=== PATIENT | female | born 1950 | race African-American/Black ===

== ENCOUNTER 2016-10-03 06:59 | Emergency (ER) | payer MEDICARE ==
[~2016-10-03] VITALS: Ht 170.2 cm; Wt 89.4 kg
[~2016-10-03 06:59] MED LIST: ALBUTEROL2 PUFFS/17 IN; ALLOPURINOL100 MG PO; AMIODARONE 200200 MG PO; AMLODIPINE BES10 MG PO; AMLODIPINE10 MG PO; ATENOLOL50 MG PO; ATORVASTATIN CA20 M1 PO; AZITHROMYCIN250 MG PO; BENTYL10 MG/5 ML PO; BENZONATATE100 MG PO; BISOPROLOL 5MG T5 MG PO; BYSTOLIC5 MG PO; CARDIZEM120 MG PO; CARVEDILOL 25MG25 MG PO; CIPRO 500MG TA500 MG PO; CLONIDINE0.3 MG PO; COLCRYS0.6 MG PO; COUMADIN 5MG TAB5 MG PO; COUMADIN10 MG PO; COUMADIN5 MG PO; DIGOXIN0.125 MG PO; FIORICET1 CAP PO; FUROSEMIDE40 MG PO; HUMALOG100 U/ML SC; HYDRALAZINE HCL25 M1 PO; HYDRALAZINE HYD50 MG PO; HYDROCHLOROTHIA25 M1 PO; K-DUR 1010 MEQ PO; K-DUR20 MEQ PO; LANTUS100 U/ML SC; LISINOPRIL40 MG PO; MAG-OX 400MG T400 MG PO; METFORMIN500 MG PO; PACERONE200 MG PO; PHENERGAN 25MG.25 M1 PO; PREDNISONE; PREDNISONE 20MG20 MG PO; PREVACID15 MG PO; SIMVASTATIN20 MG PO; SIMVASTATIN40 MG PO; TESSALON PERLE200 MG PO; WARFARIN SODIUM1 MG PO; WARFARIN SODIUM5 MG PO; ZANTAC 150150 MG PO; ZANTAC 300300 MG PO; ZITHROMAX Z-PA250 M1 PO
--- NOTE | 2016-10-03 07:13 | Emergency Room Report ---
History of Present Illness Time Seen by MD Child Presenting Problem in Triage Pt arrived:Walked Presenting Problem:PT STATES HER BP HAS BEEN ELEVATED THROUGHOUT THE NIGHT AT HOME, 194/134, SWEATING, LEGS FEEL FUNNY. 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 N Clinical Suspician of Infection? N Mental Status: 1 - Regular (Normal Baseline) Sepsis Risk:Possible Sepsis Risk Have you (or family members/close friends) recently traveled outside the [place]? N If Yes, where/when: Have you had exposure to infectious disease within the past month? TB? Other? Specify: Source patient, RN notes reviewed, family, old records Exam Limitations no limitations Comment pt with elevated bp yesterday and this am felt weak and sweaty but no syncope or chest pain - pt reports bp elevated this am Cardiac Chest Pain Chest pain indicative of cardiac No Timing/Duration this morning Severity moderate ALLERGIES Coded Allergies: No Known Allergies (04/14/16) Home Medications Active Scripts BISOPROLOL FUMARATE (Bisoprolol 5MG) 5 MG PO DAILY #30 TAB Ref 11 Prov: 12/20/15 Reported Medications Warfarin Sodium (Coumadin) 5 MG PO DAILY WARFARIN SOD (Warfarin 1MG) 1 MG PO DAILY Hydralazine Hcl (Hydralazine Hydrochloride) 50 MG PO TID CLONIDINE HCL (Clonidine 0.3MG Tablet) 0.3 MG PO TID Insulin Lispro, Recombinant (Humalog 100 UNITS/ML 10ML) 8 UNITS SC AC Insulin Glargine (Lantus) 15 UNITS SC QHS Potassium Chloride (K-Dur) 20 MEQ PO BID Atorvastatin Calcium 20 MG PO QHS Carvedilol (Carvedilol 25MG) 25 MG PO BID Furosemide (Furosemide 40MG) 40 MG PO DAILY Amlodipine Besylate (Amlodipine) 10 MG PO DAILY LISINOPRIL (Lisinopril) 10 MG PO DAILY (Jimy MALHOTRA,Pretty Finch) History Medical History General CAD? No Angina: No NE: No Hypertension? Yes Hyperlipidemia? Yes CHF? No DVT? No PE? No COPD? No Asthma? No Anemia? No GERD? Yes Gastric ulcers? No GI Bleed? No Hernia? Yes Thyroid Problems? No Hypothyroidism? No CVA? No Seizures? No Diabetes? Yes Insulin Dependent: Yes Insulin Pump: No Home FSBS? Yes Renal Insuffiency? No End Stage Renal Disease? No UTI? No Stones? No BPH? No GB Disease: Yes Nephritic Syndrome? No Asplenia? No Hepatitis? No Sickle Cell Disease? No Arthritis? No Migraines? No Cataracts? No Glaucoma? No MRSA? No HIV? No TB? No Anxiety? No Depression? No Cancer? No More? Yes Additional hx: see problem list Immunization Hx DT/Tetanus > 10 Years Ago Flu Refused Pneumonia Received In Past Surgical Hx Previous Surgery?Y GALLBLADDER TUBAL CYST REMOVED (BACK) CARDIAC ABLATION Family History Family Hx Diabetes Yes CAD Yes Hypertension Yes Hyperlipidemia Yes Cancer No TB No Social History Smoking Hx Smoker: Never Smoker Tobacco: No Alcohol Alcohol: No Drugs none (Pretty Ahn MD) Review of Systems All Other Systems Reviewed and Negative Constitutional denies fever Eyes denies drainage ENT denies: ear pain, epistaxis, throat pain. Respiratory denies cough, shortness of breath, denies wheezing Cardiovascular chest pain, palpitations, denies syncope Gastrointestinal denies abdominal pain, nausea, denies vomiting Genitourinary denies: dysuria, frequency, hesitancy. Musculoskeletal denies back pain, denies joint pain, denies neck pain Skin denies rash Psychiatric/Neurological denies headache, denies seizure (Pretty Ahn MD) Physical Exam Vital Signs Vital Signs Date Time Temp Pulse Resp B/P Pulse O2 O2 Flow FiO2 Ox Delivery Rate 10/03 1307 98.6 99 20 187/126 98 05/ 1117 99 20 179/118 98 05/ 1028 99 20 170/119 98 05/ 0856 98.6 99 20 195/114 98 05/ 0816 99 20 152/107 98 05/ 0752 97 159/109 / 0752 100 152/120 / 0751 99 158/112 05/ 0746 99 20 158/112 98 / 0702 98.6 100 20 94/56 98 - WBC >12,000 or <4,000 or 10% bands? 2 or more SIRS Criteria Met? B/P:159/109 MAP:68 Creatinine >2.0? UA output<0.5ml/kg/hr for 2 hrs? Platelet count >100,000? Lactate >2.0mmol/1? INR >1.2 or PTT > than 60 sec? Evidence of Organ Dysfunction? Provider documented clinical suspician of infection? N Sepsis Criteria Count: 2 Sepsis Risk: General Appearance no apparent distress Eye Exam - bilateral eye PERRL, bilateral eye EOMI Ear, Nose, Throat normal ENT inspection Neck non-tender Respiratory Status No: respiratory distress. Lung Sounds bilateral: lungs clear. 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 No Results/Orders Laboratory Tests 10/03/16 1005: Troponin I < 0.02, D-Dimer 1280 *H 10/03/16 0948: Creatine Kinase Cancelled, CK-MB (CK-2) Rel Index Cancelled, CK and CKMB Interp Cancelled, Troponin I Cancelled 10/03/16 0755: Sodium 139, Potassium 3.4 L, Chloride 102, Carbon Dioxide 30, BUN 15, Creatinine 1.2 H, Estimated Creat Clear 67, Estimated GFR (MDRD) 45 L, Glucose 128 H, Calcium 8.7, Total Bilirubin 1.0, AST 36, ALT 29, Alkaline Phosphatase 372 H, Creatine Kinase 29, CK-MB (CK-2) Rel Index 1.7, CK and CKMB Interp < 0.5 , Troponin I < 0.02, Total Protein 8.3 H, Albumin 2.9 L, Globulin 5.4 H, Albumin/Globulin Ratio 0.5 L, PT 16.1 H, INR 1.50 H 10/03/16 0715: B-Natriuretic Peptide 99, WBC 5.3, RBC 5.15, Hgb 12.8, Hct 40.3, MCV 78.3 L, RDW 17.0, Plt Count 338, MPV 5.7 L, Gran % 66.8, Gran # 3.6, Lymphocytes % 19.3 , Monocytes % 10.0 H, Eosinophils % 3.4, Basophils % 0.6, Lymphocytes # 1.0, Monocytes # 0.5, Eosinophils # 0.2, Basophils # 0.0, PUBS MCHC 31.8, MCH 24.9 L Current Medication Orders Sig/Benjie Start time Last Medication Dose Route Stop Time Status Admin Enoxaparin Sodium 100 MG ONCE ONE 10/03 1315 AC SC 10/03 1316 Hydralazine HCl 10 MG ONCE ONE 10/03 1315 AC IV 10/03 1316 Hydralazine HCl 0 .STK-MED ONE 10/03 1310 DC .ROUTE Iopamidol 60 ML ONCE ONE 10/03 1215 DC 10/03 IV 10/03 1216 1216 Sodium Chloride 20 ML ONCE ONE 10/03 1215 DC 10/03 IV 10/03 1216 1216 Sodium Chloride 20 ML ONCE ONE 10/03 1215 DC 10/03 IV 10/03 1216 1216 Sodium Chloride 10 ML ONCE ONE 10/03 1215 DC 05 IV 10/03 1216 1216 Hydralazine HCl 10 MG ONCE ONE 10/03 1130 DC 05/ IV 10/03 1131 1121 Hydralazine HCl 0 .STK-MED ONE 10/03 1118 DC .ROUTE Sodium Chloride 1,000 ML .Q1H1M 10/03 1115 CAN IV 10/03 1215 Sodium Chloride 10 ML PRN PRN 10/03 1115 DC IV 10/04 1107 Clonidine HCl 0.1 MG ONCE ONE 10/03 1000 DC 10/03 PO 10/03 1001 0954 Potassium Chloride 40 MEQ ONCE ONE 10/03 1000 DC 05/ PO 10/03 1001 0954 Potassium Chloride 0 .STK-MED ONE 10/03 0952 DC PO Clonidine HCl 0 .STK-MED ONE 10/03 0951 DC .ROUTE Clonidine HCl 0.1 MG ONCE ONE 10/03 0900 DC 10/03 PO 10/03 0901 0854 Clonidine HCl 0 .STK-MED ONE 10/03 0852 DC .ROUTE Sodium Chloride 10 ML PRN PRN 10/03 0715 AC IV 10/04 0712 Orders Procedure Date/time Status DIET-NOTHING BY MOUTH 10/[address] CHEST W/PE PROTOCOL REQ 10/03 1105 Complete TROPONIN I 05/04 0955 Complete D-DIMER 10/03 0949 Complete ORTHOSTATIC B/P 10/03 0750 Active BRAIN NATRIURETIC PEPTIDE 10/03 0732 Complete ELECTROCARDIOGRAM REQUEST 10/03 712 Active IV SALINE LOCK 10/03 712 Active PROTHROMBIN TIME 10/03 712 Complete COMPLETE METABOLIC PANEL 10/03 712 Complete CBC WITH AUTO DIFF 10/03 712 Complete CARDIAC ENZYMES 10/03 712 Complete 12 LEAD EKG-BESSON (INITIAL) 10/03 UNK Active 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 ST/Twave chgs XRAY/CT/US XRAY/CT/US XRAY chest XR interpretation by reviewed by me Xray Results abnormal (cm) (Jimy MALHOTRA,Pretty Finch) LABS/Meds/Orders Comment 12:55-case discussed with Dr. Ramachandran, covering for Dr. Kent, advised of patient 's abnormal CT scan findings, specifically the mediastinal and RIGHT hilar adenopathy, suspicious for metastatic disease, also the 6x5 mm noncalcified nodule LEFT upper lobe, with irregular margins. Dr. Ramachandran recommended patient to be discharged home and follow-up with his office tomorrow morning for mandatory reevaluation, also to be referred to Dr. Duncan, for a bronchoscopy plus biopsy. Patient advised of the likelihood of lung cancer, however this will require additional workup including a bronchoscopy versus a CT scan guided biopsy, prior to reaching the final diagnosis. Based on the workup today an acute coronary syndrome, a pulmonary embolus, aortic aneurysm or aortic dissection were ruled out. The patient is in stable conditionat this timne, and she will be discharged home. She appears to be still hypertensive, (alos her INR is still low) reason why she needs to see Dr. Ramachandran tomorrow, as well. XRAY/CT/US XRAY/CT/US CT chest CT interpretation by discussed w/radiologist (James) CT Results no evidence of pulmonary embolus. Cardiomegaly with prominent LEFT atrium and LEFT ventricle. Mediastinal and RIGHT hilar adenopathy. Lymphoma or metastatic disease is considered. Suspicious 6x5 millimeter noncalcified nodule LEFT upper lobe laterally with somewhat irregular margins. Follow-up recommended. Dr. Arben Ramirez (Tracie MALHOTRA,Kevin Bronson) Departure Departure Time of Disposition 0847 Disposition Still a Patient Clinical Impression Primary Impression: HTN (hypertension) Qualifiers: Hypertension type: essential hypertension Qualified Code: I10 - Essential (primary) hypertension Secondary Impressions: Hypertensive emergency ED Critical Care Critical Care No (Pretty Ahn MD) Departure Time of Disposition 1307 Condition STABLE Referrals JONATAN MALHOTRA,AUDI Ramachandran MD,Raffy (Family): Tomorrow-Call Office call today and make appointment for MANDATORY follow up tomorrow morning Patient Instructions DI for Atypical Chest Pain, DI for Pulmonary Nodule Additional Instructions Please follow-up with Dr. Ramachandran's office tomorrow morning for mandatory reevaluation, regarding your newly diagnosed lung nodule, your subtherapeutic PT /INR and elevated blood pressure.. Attached you will find Dr. Audi Maciel's contact information, with community to follow-up as well. Discharge Counseling Counseled pt/family regarding diagnosis, test results, medications/RX, home care, follow up needs Comment Please follow-up with Dr. Ramachandran's office tomorrow morning for mandatory reevaluation. Attached you will find Dr. Auid Maciel's contact information, with community to follow-up as well. ED Critical Care Critical Care No (Kevin Hodges MD) at [phone] at [phone]
--- OUTSIDE RECORDS SUMMARY | 2016-10-03 07:27 | External Medical Summary Rpt ---
Author Author , Organization [employer] Address Unknown Phone Unavailable Care Team Providers Care Veterinary Parasitologist Name Role Phone [facility] Unavailable [facility] Unavailable [facility] DEANNE PRADO, Unavailable Unavailable DEANNE Ramachandran MD, Unavailable Unavailable Raffy Ramachandran MD Purpose Continuity of Care Document - 04-12-2010 through 2016 Problems Code Diagnosis DOS Provider Status 35571 DIAB W/O 04-12-2010 [facility] COMP TYPE [facility] II/UNS NOT HOSPITAL P STATED UNCNTRL 4019 UNSPECIFIED 04-12-2010 [facility] ESSENTIAL [facility] P N 26602 ATRIAL 04-12-2010 [facility] 59109 OTHER CHEST 04-12-2010 [facility] PAIN [facility] P [id number] LONG-TERM 04-12-2010 [facility] (CURRENT[facility] USE OF INC ANTICOAGULA NTS [id number] LONG-TERM 04-12-2010 [facility] USE OF [facility] P 401.9 Essential [facility] 427.31 [facility]rial [place] [facility] [place] acquired [facility] 519.11 Bronchospas [facility] [id number] Diabetes [place] mellitus [facility] Allergies, Adverse Reactions, Alerts Type Allergy to substance Adverse Reaction to Substance Substance Reaction Severity INGREDIENT: NO KNOWN Unknown Unknown - NO KNOWN DRUG ALLERGY Medications Na ND Rx Da Fi Fi Am Da Di Ph RX Ph St me C No te ll ll ou ys ag ar # ys at rm s nt no ma ic us Or Da si cy ia de te s n re d HY [address] 40 -2 OC 60 7- Lo OD 36 20 ng ON 56 13 er -A 2 CE Ac TA ti PR ve NO PH EN 5- 32 5 KL 00 03 0 No OR 24 -2 -C 50 7- Lo ON 05 20 ng 80 13 er M2 1 0 Ac TA ti BL ve ET Me 00 03 0 No th 00 -2 yl 90 7- Lo pr 19 20 ng ed 00 13 er ni 9 so Ac lo ti ne ve So d Molina cc in a Me 00 03 0 No th 00 -2 yl 90 6- Lo pr 19 20 ng ed 00 13 er ni 9 so Ac lo ti ne ve So d Molina cc in a TO 00 03 0 No GA 18 -2 OL 61 6- Lo 08 20 ng XL 83 13 er 9 25 Ac ti MG ve TA BL ET HU 00 03 1 No MA 00 -2 LO 27 6- Lo G 51 20 ng 10 01 13 er 0 7 UN Ac IT ti S/ ve ML AL FS 03 0 No -2 BL 6- Lo OO 20 ng D 13 er MOLINA GA Ac R ti ve FU 00 03 0 No RO 40 -2 SE 96 6- Lo PR 10 20 ng DE 20 13 er 4 40 Ac ti MG ve /4 ML AL NO 00 03 1 No RV 06 -2 91 6- Lo C 54 20 ng 10 04 13 er 1 MG Ac ti TA ve BL ET CL 51 03 1 No ON 07 -2 ID 90 6- Lo IN 29 20 ng E 92 13 er HC 0 L Ac 0. ti 1 ve MG TA BL ET HY [address] 07 -2 AL 90 6- Lo AZ 07 20 ng IN 52 13 er E 0 25 Ac ti MG ve TA BL ET Li 00 03 1 No si 17 -2 no 23 6- Lo pr 76 20 ng il 01 13 er 0 20 Ac MG ti ve Ta bl et KL 00 03 1 No OR 24 -2 -C 50 6- Lo ON 05 20 ng 80 13 er M2 1 0 Ac TA ti BL ve ET LE 00 03 1 No VA 59 -2 LB 12 6- Lo UT 92 20 ng ER 02 13 er OL 3 Ac 1. ti 25 ve MG /3 ML SO L FA 51 03 1 No MO 07 -2 TI 90 6- Lo DI 96 20 ng NE 62 13 er 0 20 Ac ti MG ve TA BL ET In 00 03 1 No molina 08 -2 li 82 6- Lo n 22 20 ng Gl 06 13 er ar 0 gi Ac ne ti ve 10 0 Un it s/ Ml GA 51 03 1 No AV 07 -2 90 6- Lo TA 45 20 ng TI 82 13 er N 0 SO Ac DI ti UM ve 20 MG TA B Sa 63 03 2 No li 80 -2 ne 70 5- Lo 10 20 ng Fl 07 13 er us 5 h Ac 10 ti ML ve Sy ri ng e IP 00 03 0 No RA 48 -2 T- 70 5- Lo AL 20 20 ng BU 10 13 er T 1 0. Ac 5- ti 3( ve 2. 5) MG /3 ML Di 55 03 0 No lt 39 -2 ia 00 5- Lo ze 56 20 ng m 60 13 er 25 5 MG Ac /5 ti ML ve Vi al FU 00 03 0 No RO 40 -2 SE 96 5- Lo PR 10 20 ng DE 20 13 er 4 40 Ac ti MG ve /4 ML AL Vital Signs 08-26-2012 16:20 Name Value Interpretat Reference Comment ion Range Body 98.2 [degF] Temperature BP 68 mm[Hg] Diastolic BP Systolic 128 mm[Hg] Heart 96 /min Rate/Pulse Respiratory 22 /min Rate 08-26-2012 12:00 Name Value Interpretat Reference Comment ion Range O2% 95 % 08-25-2012 05:43 Name Value Interpretat Reference Comment ion Range Height 172.72 cm Weight 123.974 kg Measured 08-24-2012 23:08 Name Value Interpretat Reference Comment ion Range Body 99.1 [degF] Temperature BP 119 mm[Hg] Diastolic BP Systolic 158 mm[Hg] Heart 107 /min Rate/Pulse O2% 100 % Respiratory 26 /min Rate Weight 0 [oz_av] Measured Results Labs Lab Lab Date Result Refere Interp Status Commen Order Detail nces retati t Range on Glucose BldC Glucomtr-[facility] (08-26-2012 11:55) Glucose 449 70-110 High complet BldC 013 mg/dl alert ed Glucomt 11:55 r-[facility] PROTIME/INR (08-26-2012 07:15) PROTHRO 41.1 9.8-11. complet MBIN 013 SECONDS 0 ed TIME 07:15 INR Bld 4.01 0.9-1.1 complet 013 UNK ed 07:15 Glucose BldC [facility] (08-26-2012 06:49) Glucose 112 70-110 complet BldC 013 mg/dl ed Glucomt 06:49 r-[facility] BASIC METABOLIC PANEL (08-26-2012 06:27) Glucose 204 74-106 complet 013 mg/dL ed Bld-mCn 06:27 c BUN 27 7-18 complet Bld-mCn 013 mg/dL ed c 06:27 Creat 1.2 0.6-1.0 complet SerPl-m 013 mg/dL ed Cnc 06:27 ESTIMAT 98 50-200 complet ED 013 ML/MIN ed CREATIN 06:27 INE CLEARAN CE GFR 46 59- complet (ESTIMA 013 ML/MIN ed LAKSHMI) 06:27 Sodium 139 136-145 complet SerPl-s 013 mmoL/L ed Cnc 06:27 Potassi 3.7 3.5-5.1 complet um 013 mmoL/L ed SerPl-s 06:27 Cnc Chlorid 99 98-107 complet e 013 mmoL/L ed SerPl-s 06:27 Cnc CO2 38 21.0-32 complet SerPl-s 013 mmoL/L .0 ed Cnc 06:27 Calcium 8.9 8.5-10. complet 013 mg/dL 1 ed SerPl-m 06:27 Cnc Glucose dC [facility] (08-25-2012 21:09) Glucose 289 70-110 complet BldC 013 mg/dl ed Glucomt 21:09 [facility] Glucose dC Glucomtr-[facility] (08-25-2012 16:57) Glucose 375 70-110 High complet BldC 013 mg/dl alert ed Glucomt 16:57 [facility] Glucose dC [facility]comtr-[facility] (08-25-2012 12:04) Glucose 454 70-110 High complet BldC 013 mg/dl alert ed Glucomt 12:04 [facility] Glucose dC Glucomtr-[facility] (08-25-2012 06:10) Glucose 386 70-110 High complet BldC 013 mg/dl alert ed Glucomt 06:10 [facility] COMPREHENSIVE METABOLIC PANEL (08-24-2012 23:30) Glucose 327 74-106 complet 013 mg/dL ed Bld-mCn 23:30 c BUN 29 7-18 complet Bld-mCn 013 mg/dL ed c 23:30 Creat 1.5 0.6-1.0 complet SerPl-m 013 mg/dL ed Cnc 23:30 ESTIMAT 76 50-200 complet ED 013 ML/MIN ed CREATIN 23:30 INE CLEARAN CE GFR 35 59- complet (ESTIMA 013 ML/MIN ed LAKSHMI) 23:30 Sodium 139 136-145 complet SerPl-s 013 mmoL/L ed Cnc 23:30 Potassi 4.0 3.5-5.1 complet um 013 mmoL/L ed SerPl-s 23:30 Cnc Chlorid 102 98-107 complet e 013 mmoL/L ed SerPl-s 23:30 Cnc CO2 32 21.0-32 complet SerPl-s 013 mmoL/L .0 ed Cnc 23:30 Calcium 8.3 8.5-10. complet 013 mg/dL 1 ed SerPl-m 23:30 Cnc Prot 6.3 6.4-8.2 complet SerPl-m 013 gm/dL ed Cnc 23:30 Albumin 3.3 3.4-5.0 complet 013 gm/dL ed SerPl-m 23:30 Cnc Globuli 3.0 1.3-3.2 complet n 013 gm/dL ed Ser-mCn 23:30 c Albumin 1.1 UNK 1.1-1.8 complet /Glob 013 ed SerPl-m 23:30 Rto Bilirub 0.3 0.2-1.0 complet 013 mg/dL ed SerPl-m 23:30 Cnc AST 9 U/L 15-37 complet SerPl-c 013 ed Cnc 23:30 ALT 46 U/L 30-65 complet SerPl-c 013 ed Cnc 23:30 ALP 90 U/L 50-136 complet SerPl-c 013 ed Cnc 23:30 BNP Bld-mCnc (08-24-2012 23:30) BNP 08-24-2 134 0-100 complet Bld-mCn 013 pg/mL ed c 23:30 PROTIME/INR (08-24-2012 23:30) PROTHRO 08-24-2 78.0 9.8-11. complet MBIN 013 SECONDS 0 ed TIME 23:30 INR Bld 2 7.65 0.9-1.1 complet 013 UNK ed 23:30 CBC with AUTO DIFF (08-24-2012 23:30) WBC # 08-24-2 8.5 4.8-10. complet Bld 013 K/MM3 8 ed Auto 23:30 RBC # 08-24-2 4.35 4.2-5.4 complet Bld 013 M/mm3 ed Auto 23:30 Hgb 08-24-2 11.5 12.2-16 complet Bld-mCn 013 g/dL .2 ed c 23:30 Hct Fr 36.1 % 37.0-47 complet Bld 013 .0 ed 23:30 MCV RBC 08-24-2 83.0 fl 82.2-97 complet 013 .8 ed 23:30 MCH RBC 08-24-2 26.5 pg 27-31.2 complet Qn 013 ed Auto 23:30 MEAN 08-24-2 32.0 31.8-35 complet CORPUSC 013 g/dl .4 ed ULAR 23:30 HGB CONC RDW RBC 08-24-2 19.1 % 11.5-17 complet Auto 013 .5 ed 23:30 Platele 2 169 142-424 complet t Bld 013 K/mm3 ed Ql 23:30 Manual MEAN 08-24-2 7.6 fl 7.4-10. complet PLATELE 013 4 ed T 23:30 VOLUME Granulo 08-24-2 81.5 % 37.0-80 complet cytes 013 .0 ed Fr Bld 23:30 Auto LYMPH % 08-24-2 12.1 % 10-50.0 complet 013 ed 23:30 Monocyt 08-24-2 5.4 % 1.7-9.3 complet es Fr 013 ed Bld 23:30 Auto Eosinop 08-24-2 0.9 % 0.1-12. complet hil Fr 013 0 ed Bld 23:30 Auto Basophi 08-24-2 0.1 % 0.1-2.0 complet ls Fr 013 ed Bld 23:30 Auto Granulo 6.9 1.8-7.8 complet cytes # 013 K/mm3 ed Bld 23:30 Auto Lymphoc 08-24-2 1.0 0.7-4.5 complet ytes Fr 013 K/mm3 ed Bld 23:30 Auto Monocyt 08-24-2 0.5 0.1-1.0 complet es # 013 K/mm3 ed Bld 23:30 Auto Eosinop 2 0.1 0.0-0.4 complet hil # 013 K/mm3 ed Bld 23:30 Auto Basophi 08-24-2 0.0 0-0.2 complet ls # 013 K/MM3 ed Bld 23:30 Auto Procedures Procedure DOS Code Location Performer Comment DETER 92009 ANDRADE ALICEA AIRW[address] 0 [facility] ER VOL 1 P BRTH TSTS DETER 38531 ANDRADE ALICEA MALDISTRI 0 [facility] BJ OF HOSPITAL INSPIRED P GAS N WSHOT CURVE FUNCTIONA 25666 ANDRADE ALICEA L 0 [facility] RESIDUAL HOSPITAL CAPACITY P OR RESIDUAL VOLUME BRNCDILAT 30286 ANDRADE ALICEA RSPSE 0 [facility] PRE&POST- P BRNCDILAT ADMN ECG 68678 ANDRADE ALICEA ROUTINE 0 [facility] W/LEAST P 12 LDS I&R ONLY Encounters Encounter Start End Date Code Location Performer Type Date Inpatient IMP Andrade Ramachandran MD (IN) 3 23:20 3 16:40 [facility] ANDRADE - 0 0 [facility]
--- OUTSIDE RECORDS SUMMARY | 2016-10-03 07:27 | External Medical Summary Rpt ---
Demographics Preferred Language Nigerian Marital Status Unknown Gnosticism Affiliation Unknown Race Unknown Ethnic Group Unknown Author Author , Organization [employer] Address Unknown Phone Unavailable Purpose Continuity of Care Document - through 2016 Immunization No patient found.
--- OUTSIDE RECORDS SUMMARY | 2016-10-03 07:27 | External Medical Summary Rpt ---
Author Author , Organization [employer] Address Unknown Phone Unavailable Care Team Providers Care Diesel Bus Mechanic Name Role Phone [facility] Unavailable Un[facility] INC, [facility] Unavailable [facility] P, [facility], Unavailable Unavailable [facility] Purpose Continuity of Care Document - 04-12-2010 through 2016 Problems Code Diagnosis DOS Provider Status 53997 DIAB W/O 04-12-2010 [facility] COMP TYPE [facility] II/UNS NOT HOSPITAL P STATED UNCNTRL 4019 UNSPECIFIED 04-12-2010 [facility] P N 08113 ATRIAL 04-12-2010 [facility] 83190 OTHER CHEST 04-12-2010 [facility] P V5861 LONG-TERM 04-12-2010 [facility]CURRENT[facility] USE OF INC ANTICOAGULA NTS V5867 LONG-TERM 04-12-2010 [facility] USE OF [facility] INSULIN [facility] P Procedures Procedure DOS Code Location Performer Comment BRNCDILAT 15516 JEF DEANNE [facility]SPSE [facility] PRE[facility]- P BRNCDILAT ADMN FUNCTIONA 81707 JEF ALICEA L 0 [facility] RESIDUAL HOSPITAL CAPACITY P OR RESIDUAL VOLUME DETER 41844 JEF ALICEA MALDISTRI 0 [facility] BJ OF HOSPITAL INSPIRED P GAS N WSHOT CURVE DETER 73475 JEF ALICEA AIRWY 0 [facility] CLOSING HOSPITAL VOL 1 P BRTH TSTS ECG 15947 JEF ALICEA ROUTINE 0 [facility] ECG HOSPITAL W/LEAST P 12 LDS I&R ONLY Encounters Encounter Start End Date Code Location Performer Type Date HOSPITAL JEF - 0 0 [facility]
--- OUTSIDE RECORDS SUMMARY | 2016-10-03 07:27 | External Medical Summary Rpt ---
Author Author , Organization [employer] Address Unknown Phone Unavailable Care Team Providers Care Tearoom Host/Hostess Name Role Phone [facility] Unavailable Unavailable [facility], [facility] Unavailable [facility] P, [facility], Unavailable Unavailable [facility] Purpose Continuity of Care Document - 04-12-2010 through 2016 Problems Code Diagnosis DOS Provider Status 03647 DIAB W/O 04-12-2010 [facility] COMP TYPE [facility] II/UNS NOT HOSPITAL P STATED UNCNTRL 4019 UNSPECIFIED 04-12-2010 [facility] HYPERTENSIO [facility] P N 84846 ATRIAL 04-12-2010 [facility] [id number] OTHER CHEST 04-12-2010 [facility] P [id number] LONG-TERM 04-12-2010 [facility] (CURRENT[facility] USE OF INC ANTICOAGULA NTS V5867 LONG-TERM 04-12-2010 [facility] USE OF [facility] INSULIN [facility] P Procedures Procedure DOS Code Location Performer Comment BRNCDILAT 02789 JEF DEANNE RSPSE 0 [facility] PRE[facility]- P BRNCDILAT ADMN FUNCTIONA 23923 JEF ALICEA L 0 [facility] RESIDUAL HOSPITAL CAPACITY P OR RESIDUAL VOLUME DETER 88329 JEF ALICEA MALDISTRI 0 [facility] BJ OF HOSPITAL INSPIRED P GAS N WSHOT CURVE DETER 85929 JEF ALICEA AIRW[address] 0 [facility] CLOSING HOSPITAL VOL 1 P BRTH TSTS ECG 02288 JEF ALICEA ROUTINE 0 [facility] ECG HOSPITAL W/LEAST P 12 LDS I&R ONLY Encounters Encounter Start End Date Code Location Performer Type Date HOSPITAL JEF - 0 0 [facility]
--- OUTSIDE RECORDS SUMMARY | 2016-10-03 07:27 | External Medical Summary Rpt ---
Author Author , Organization [employer] Address Unknown Phone Unavailable Care Team Providers Care Public Policy Associate Name Role Phone [facility] Unavailable Unavailable INC, [facility] Unavailable Unavailable [facility]PITAL P, [facility] DEANNE PRADO, Unavailable Unavailable DEANNE Ramachandran MD, Unavailable Unavailable Raffy Ramachandran MD Purpose Continuity of Care Document - 04-12-2010 through 2016 Problems Code Diagnosis DOS Provider Status 79153 DIAB W/O 04-12-2010 [place] COMP TYPE [facility] II/UNS NOT HOSPITAL P STATED UNCNTRL 4019 UNSPECIFIED 04-12-2010 [place] ESSENTIAL [facility] DORAL P N 21619 ATRIAL 04-12-2010 [facility] 55287 OTHER CHEST 04-12-2010 [place] PAIN [facility] P V5861 LONG-TERM 04-12-2010 [facility] (CURRENT[facility] USE OF INC ANTICOAGULA NTS V5867 LONG-TERM 04-12-2010 [place] USE OF [facility] 401.9 [facility] 427.31 [facility] [place] [facility] [address] [place] acquired [facility] 519.11 Bronchospas [facility] [id number] Diabetes [place] mellitus [facility] Allergies, Adverse Reactions, Alerts Type Allergy to [...] er -A 2 CE Ac TA ti NC ve NO PH EN 5- 32 5 [...] in a TO 00 03 0 No MI 18 -2 OL 61 6- Lo 08 [...] RO 40 -2 SE 96 6- Lo NC 10 20 ng DE 20 13 er [...] ve 10 0 Un it s/ Ml MI 51 03 1 No AV 07 -2 [...] RO 40 -2 SE 96 5- Lo NC 10 20 ng DE 20 13 er [...] nces retati t Range on Glucose BldC [facility]comtr-[facility] (08-26-2012 11:55) Glucose 449 70-110 High complet BldC 013 mg/dl alert ed Glucomt 11:55 r-[facility] PROTIME/INR (08-26-2012 07:15) PROTHRO 41.1 9.8-11. complet MBIN 013 SECONDS 0 ed TIME 07:15 INR Bld 4.01 0.9-1.1 complet 013 UNK ed 07:15 Glucose BldC Glucomtr-[facility] (08-26-2012 06:49) Glucose 112 70-110 complet BldC 013 mg/dl ed Glucomt 06:49 r-[facility] BASIC METABOLIC PANEL (08-26-2012 06:27) Glucose 204 [...] 1 ed SerPl-m 06:27 Cnc Glucose dC [facility]comtr-[facility] (08-25-2012 21:09) Glucose 289 70-110 complet BldC 013 mg/dl ed Glucomt 21:09 [facility] Glucose dC Glucomtr-[facility] (08-25-2012 16:57) Glucose 375 70-110 High complet BldC 013 mg/dl alert ed Glucomt 16:57 [facility] Glucose dC [facility]comtr-[facility] (08-25-2012 12:04) Glucose 454 70-110 High complet BldC 013 mg/dl alert ed Glucomt 12:04 [facility] Glucose dC [facility]comtr-[facility] (08-25-2012 06:10) Glucose 386 70-110 High complet BldC 013 mg/dl alert ed Glucomt 06:10 [facility] COMPREHENSIVE METABOLIC PANEL (08-24-2012 23:30) Glucose 327 [...] Procedure DOS Code Location Performer Comment DETER 86469 ANDRADE ALICEA AIRW[address] 0 [facility] VOL 1 P BRTH TSTS DETER 02210 ANRDADE ALICEA MALDISTRI 0 [facility] BJ OF HOSPITAL INSPIRED P GAS N WSHOT CURVE FUNCTIONA 84826 ANDRADE ALICEA L 0 [facility] RESIDUAL HOSPITAL CAPACITY P OR RESIDUAL VOLUME BRNCDILAT 90515 ANDRADE ALICEA RSPSE 0 [facility] PRE&POST- P BRNCDILAT ADMN ECG 73656 ANDRADE ALICEA ROUTINE 0 [facility] W/LEAST P 12 LDS I&R ONLY Encounters Encounter Start End Date Code Location Performer Type Date Inpatient IMP Andrade Ramachandran MD (IN) 3 23:20 3 16:40 [facility] ANDRADE - 0 0 [facility]
--- OUTSIDE RECORDS SUMMARY | 2016-10-03 07:27 | External Medical Summary Rpt ---
Demographics Preferred Language Armenian Marital Status Unknown Islam Affiliation Unknown Race Unknown Ethnic Group Unknown Author Author , Organization [employer] Address Unknown Phone Unavailable Purpose Continuity of Care Document - through 2016 Immunization No patient found.
[2016-10-03 07:41] LABS: LYMPH % 19.3 % (10-50.0)
[2016-10-03 07:46] LABS: HEMOGLOBIN 12.8 g/dL (12.2-16.2)
[2016-10-03] MEDS ORDERED: LISINOPRIL 10MG10 MG PO (07:54)
[2016-10-03 08:48] LABS: BUN 15 mg/dL (7-18)
[2016-10-03 08:49] LABS: GFR (ESTIMATED) 45 ML/MIN (59-)
--- NOTE | 2016-10-03 09:43 | RADIOLOGY REPORT PS360 ---
CHEST-PORTABLE HISTORY: sob ORDERING PHYSICIAN: Pretty Ahn MD PATIENT AGE: 66 years COMPARISON: 04/16/2016 FINDINGS: Mild cardiomegaly without failure.. No lobar consolidation or collapse. There is prominent paratracheal density on the right as well as prominent right hilum consistent with adenopathy... No acute bony abnormalities. IMPRESSION: Cardiomegaly with right paratracheal and right hilar adenopathy. No lobar consolidation or collapse.
--- NOTE | 2016-10-03 12:45 | RADIOLOGY REPORT PS360 ---
CTA-CHEST HISTORY: Elevated d-dimer, abnormal chest x-ray, shortness of breath ELEVATED D DIMER,H/O PE ORDERING PHYSICIAN: Kevin Hodges MD PATIENT AGE: 66 years TECHNIQUE: Helical acquisition obtained following the bolus administration of 60 mL of Isovue 370 followed by a saline bolus. Axial, sagittal, and coronal reformatted images are generated and reviewed. COMPARISON: 04/14/2016 FINDINGS: No evidence of pulmonary embolus. The ascending aorta is upper normal at 3.9 cm. There is moderate paratracheal adenopathy with right anterior paratracheal lymph nodes measuring up to 3.4 x 2.9 cm. Right hilar adenopathy also noted. Subcarinal adenopathy present. These findings are not significantly changed. There is moderate cardiomegaly with enlarged left atrium and left ventricle. There is some calcification of the mitral valve annulus. There is a moderate sized hiatal hernia. Mild fibrotic changes are present in the lung bases. There is a 6 x 5 mm noncalcified nodule in the left upper lobe laterally with somewhat irregular margins. This has a somewhat suspicious appearance. Images of the apex are unremarkable. The left lobe of the thyroid gland is somewhat prominent.. There are partially calcified subcutaneous masses in the left posterior chest wall containing internal fat density consistent with partially calcified lipomatous/sebaceous cyst IMPRESSION: 1. No evidence of pulmonary embolus. 2. Cardiomegaly with prominent left atrium and left ventricle. 3. Mediastinal and right hilar adenopathy. Lymphoma or metastatic disease is considered. 4. Suspicious 6 x 5 mm noncalcified nodule left upper lobe laterally with somewhat irregular margins. This may have been present on the previous exam but somewhat better demonstrated on today's exam. Follow-up is recommended.
[2016-10-03 15:54] VITALS: BP 144/93
== END 2016-10-03 15:55 | disposition still patient (30) ==
LOC: ER 06:59
PROVIDERS: Emergency Medicine
DX: I10 Essential (primary) hypertension (principal); K21.9 Gastro-esophageal reflux disease without esophagitis; E11.9 Type 2 diabetes mellitus without complications; Z79.4 Long term (current) use of insulin
CPT/HCPCS: Q9967

== ENCOUNTER → 2017-01-30 | Outpatient (CLI) | payer MEDICARE ==
[~2017-01-30] MED LIST changes: +LISINOPRIL 10MG10 MG PO
[2017-01-30 13:21] LABS: BUN 20 mg/dL (7-18)
[2017-01-30 13:26] LABS: GFR (ESTIMATED) 35 ML/MIN (59-)
== END ==
LOC: LAB 12:58
PROVIDERS: Physician Assistant
DX: E87.6 Hypokalemia (principal)

== ENCOUNTER 2017-04-07 03:18 | Inpatient (IN) | payer MEDICARE ==
[~2017-04-07] VITALS: Ht 170.2 cm; Wt 89.8 kg
[2017-04-07] VITALS (16 sets, daily range): BP systolic 114–170; BP diastolic 58–134
--- NOTE | 2017-04-07 03:36 | Emergency Room Report ---
History of Present Illness Time Seen by 0333 Presenting Problem in Triage Pt arrived:Walked Presenting Problem:PT STATES SHE COULD TELL HER BLOOD PRESSURE WAS UP LAST NIGHT WHEN SHE WENT TO BED, TOOK A BLOOD PRESSURE PILL AND NOTICED BLOOD PRESSURE WASNT GOING DOWN Onset of symptoms date/time:04/06/1710/16/2199 or onset unknown for: Treatment Prior to Arrival: BLOOD PRESSURE PILL-CLONIDINE, CARVILEDOL, HYDRALAZINE [employer] Provided by:SELF Sepsis Risk Assessment: Temp: 98.3 B/P: 126/49 MAP: 146 Pulse: 87 Resp: 18 Recent fever? N Clinical Suspician of Infection? N Mental Status: 1 - Regular (Normal Baseline) Sepsis Risk:Possible Sepsis Risk Have you (or family members/close friends) recently traveled outside the [place]? N If Yes, where/when: Have you had exposure to infectious disease within the past month? N TB? Other? Specify: Comment The patient complains of elevated heart rate and blood pressure since 10 PM. She says she took her evening medications and it did not help. She denies chest pain or shortness of breath. She does have some slight nausea. She has a history of paroxysmal atrial fibrillation. She had a failed ablation attempt 2 years ago. PCP is Dr. Kent/Dr. Ramachandran. Cardioligist is Dr. Horner/Ronaldo Hanson. ALLERGIES Coded Allergies: No Known Allergies (04/14/16) Home Medications Active Scripts BISOPROLOL FUMARATE (Bisoprolol 5MG) 5 MG PO DAILY #30 TAB Ref 11 Prov: 12/20/15 Reported Medications Warfarin Sodium (Coumadin) 5 MG PO DAILY WARFARIN SOD (Warfarin 1MG) 1 MG PO DAILY Hydralazine Hcl (Hydralazine Hydrochloride) 50 MG PO TID CLONIDINE HCL (Clonidine 0.3MG Tablet) 0.3 MG PO TID Insulin Lispro, Recombinant (Humalog 100 UNITS/ML 10ML) 8 UNITS SC AC Insulin Glargine (Lantus) 15 UNITS SC QHS Potassium Chloride (K-Dur) 20 MEQ PO BID Atorvastatin Calcium 20 MG PO QHS Losartan Potassium (Losartan 25MG) 25 MG PO DAILY #1 Cyclobenzaprine Hcl (Cyclobenzaprine 10MG) 10 MG PO BID Carvedilol (Carvedilol 25MG) 25 MG PO BID Furosemide (Furosemide 40MG) 40 MG PO DAILY History Medical History General CAD? No Angina: No AL: No Hypertension? Yes Hyperlipidemia? Yes CHF? No DVT? No PE? No COPD? No Asthma? No Anemia? No GERD? Yes Gastric ulcers? No GI Bleed? No Hernia? Yes Thyroid Problems? No Hypothyroidism? No CVA? No Seizures? No Diabetes? Yes Insulin Dependent: Yes Insulin Pump: No Home FSBS? Yes Renal Insuffiency? No End Stage Renal Disease? No UTI? No Stones? No BPH? No GB Disease: Yes Nephritic Syndrome? No Asplenia? No Hepatitis? No Sickle Cell Disease? No Arthritis? No Migraines? No Cataracts? No Glaucoma? No MRSA? No HIV? No TB? No Anxiety? No Depression? No Cancer? No More? Yes Additional hx: see problem list Immunization Hx DT/Tetanus > 10 Years Ago Flu Refused Pneumonia Received In Past Surgical Hx Previous Surgery?Y GALLBLADDER TUBAL CYST REMOVED (BACK) CARDIAC ABLATION Family History Family Hx Diabetes Yes CAD Yes Hypertension Yes Hyperlipidemia Yes Cancer No TB No Social History Alcohol Alcohol: No Additionial History Additional History Admitted in November to this hospital for rapid atrial fibrillation and hypertension Review of Systems All Other Systems Reviewed and Negative Constitutional denies diaphoresis Respiratory denies shortness of breath Cardiovascular denies chest pain, palpitations Gastrointestinal nausea, denies vomiting Physical Exam Vital Signs Vital Signs Date Time Temp Pulse Resp B/P Pulse O2 O2 Flow FiO2 Ox Delivery Rate 04/07 0534 112 20 159/108 96 04/07 0450 89 20 115/63 96 04/07 0402 87 18 126/49 97 04/07 0328 98.3 124 21 170/134 97 General Appearance no apparent distress Eye Exam - bilateral eye normal exam, bilateral eye PERRL, bilateral eye EOMI Ear, Nose, Throat hearing grossly normal, normal ENT inspection Neck normal inspection, non-tender, supple, full range of motion Respiratory Status Yes: trachea midline, chest symmetrical, non tender chest. No: respiratory distress. Lung Sounds bilateral: normal breath sounds, lungs clear. 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 No Results/Orders Laboratory Tests 04/07/175: PT 67.2 H, INR 6.11 H, WBC 4.7 L, RBC 4.36, Hgb 10.6 L, Hct 34.3 L, MCV 78.5 L, RDW 16.7, Plt Count 275, MPV 7.5, Gran % 60.5, Gran # 2.8, Lymphocytes % 18.3, Monocytes % 13.2 H, Eosinophils % 7.4, Basophils % 0.6, Lymphocytes # 0.9, Monocytes # 0.6, Eosinophils # 0.4, Basophils # 0.0, PUBS MCHC 30.8 L, MCH 24.2 L 04/07/17 0335: Sodium 136, Potassium 4.0, Chloride 101, Carbon Dioxide 27, BUN 20 H, Creatinine 1.4 H, Estimated Creat Clear 56, Estimated GFR (MDRD) 38 L, Glucose 113 H, Calcium 9.4, Total Bilirubin 0.7, AST 41 H, ALT 23, Alkaline Phosphatase 291 H, Troponin I < 0.02, Total Protein 7.8, Albumin 3.0 L, Globulin 4.8 H, Albumin/Globulin Ratio 0.6 L Current Medication Orders Sig/Benjie Start time Last Medication Dose Route Stop Time Status Admin Sodium Chloride 100 ML .STK-MED ONE 04/07 357 DC IV Diltiazem HCl 0 .STK-MED ONE 04/07 356 DC IV Diltiazem HCl 0 .STK-MED ONE 04/07 356 DC IV Diltiazem HCl 100 MG ONCE ONE 04/07 345 AC 04/07 Sodium Chloride 100 ML IV 04/07 1344 0400 Diltiazem HCl 20 MG ONCE ONE 04/07 345 DC 04/07 IV 04/07 346 0400 Sodium Chloride 10 ML PRN PRN 04/07 345 AC IV 04/08 338 Orders Procedure Date/time Status ELECTROCARDIOGRAM REQUEST 04/07 338 Active IV SALINE LOCK 04/07 338 Active 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 04/07 338 Active TROPONIN I 04/07 338 Complete PROTHROMBIN TIME 04/07 338 Complete CBC WITH AUTO DIFF 04/07 338 Complete CHEM 12 PROFILE 04/07 338 Complete 12 LEAD EKG-CAMILLA (INITIAL) 04/07 UNK Active CM/EKG CM/EKG Comments EKG interpreted by Douglas Wagoner MD: Rhythm: Regular, narrow complex tachycardia, likely atrial flutter Rate: 130 [place]: LEFT Ectopy: none Conduction: normal ST Segment Changes: none T Wave Changes: none Q Waves: none No evidence of acute ischemia or injury Left ventricular hypertrophy XRAY/CT/US XRAY/CT/US XRAY chest Comment X-ray interpreted by Douglas Wagoner M.D.: Cardiomegaly, RIGHT hilar prominence, Hiatal hernia Progress - 6:00 AM: I have discussed the case with Dr. Ramachandran who agrees to admit the patient to the hospital. We discussed the patient's clinical information, including history, exam, laboratory and radiology results and ED course. Per hospital procedure, I will write temporary bridge inpatient orders on the patient. Specific orders requested by the admitting physician: Continue Cardizem drip Departure Departure Disposition Still a Patient Clinical Impression Primary Impression: Rapid atrial fibrillation Secondary Impressions: Uncontrolled hypertension Condition STABLE Referrals Raffy Ramachandran MD (Family) ED Critical Care Critical Care Yes Time spent 30-74 min Vital system(s) involved: Circulatory Failure I was present at bedside for Coordinating pt's care, Interpreting EKGs/Strips , During my initial exam, Reviewing lab results, Reviewing old records, Discussing pt condition, Examining radiographs at 0729
--- OUTSIDE RECORDS SUMMARY | 2017-04-07 03:56 | External Medical Summary Rpt | CCD ---
Author Author , CHRISTIANA VILLEDA Address Unknown Phone .[employer] Care Team Providers Care Tip Cutter Name Role Phone [facility] Unavailable Unavailable INC, [facility] Unavailable Unavailable HOSPITAL P, [facility] P Raffy Ramachandran MD, Unavailable Unavailable Raffy Ramachandran MD Purpose Continuity of Care Document - 04-12-2010 through 2016 Problems Code Diagnosis DOS Provider Status 00755 DIAB W/O 04-12-2010 [facility] COMP TYPE [facility] II/UNS NOT HOSPITAL P STATED UNCNTRL 4019 UNSPECIFIED 04-12-2010 [facility] ESSENTIAL [facility] P N 16413 ATRIAL 04-12-2010 [facility] 10466 OTHER CHEST 04-12-2010 [facility] PAIN [facility] P V5861 LONG-TERM 04-12-2010 [facility] (CURRENT) [facility] USE OF INC ANTICOAGULA NTS V5867 LONG-TERM 04-12-2010 [facility] USE OF [facility] P 401.9 Essential [facility] 427.31 [facility] [place] [facility] [address] [place] acquired [facility] 519.11 Bronchospas [facility] [id number] Diabetes [place] mellitus 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 I10 ESSENTIAL (PRIMARY) HYPERTENSIO N I16.1 HYPERTENSIV E EMERGENCY I16.9 HYPERTENSIV E CRISIS, UNSPECIFIED I48.2 CHRONIC ATRIAL FIBRILLATIO N I48.91 UNSPECIFIED ATRIAL FIBRILLATIO N I48.92 UNSPECIFIED ATRIAL FLUTTER I49.9 CARDIAC ARRHYTHMIA, UNSPECIFIED J18.1 LOBAR PNEUMONIA, UNSPECIFIED ORGANISM J96.01 ACUTE RESPIRATORY FAILURE WITH HYPOXIA N28.9 DISORDER OF KIDNEY AND URETER, UNSPECIFIED R00.2 PALPITATION S R51 HEADACHE Z12.31 ENCNTR SCREEN MAMMOGRAM FOR MALIGNANT NEOPLASM OF BREAST Allergies, Adverse Reactions, Alerts Type Allergy to [...] ia de te s n re d AP 00 03 0 No AP 40 -2 /H 60 7- Lo YD 36 20 ng RO 56 13 er CO 2 DO Ac NE ti ve 32 5 MG -5 MG Po 00 03 0 No ta 24 -2 ss 50 7- Lo iu 05 20 ng m 80 13 er Ch 1 lo Ac ri ti de ve 20 ME Q Ta bl e Me 00 03 0 No th 00 [...] in a TO 00 03 0 No CA 18 -2 OL 61 6- Lo 08 [...] Ac MG ti ve Ta bl et Po 00 03 1 No ta 24 -2 ss 50 6- Lo iu 05 20 ng m 80 13 er Ch 1 lo Ac ri ti de ve 20 ME Q Ta bl e Le 00 03 1 No va 59 -2 lb 12 6- Lo ut 92 20 ng er 02 13 er ol 3 Ac 1. ti 25 ve MG /3 ML Ne b FA 51 03 1 No MO 07 -2 TI 90 6- Lo DI 96 20 ng NE 62 13 er 0 20 Ac ti MG ve TA BL ET In 00 03 1 No molina 08 -2 li 82 6- Lo n 22 20 ng Gl 06 13 er ar 0 gi Ac ne ti ve 10 0 Un it s/ Ml CA 51 03 1 No AV 07 -2 [...] Order Detail nces retati t Range on Mycobacterium XXX Ql Cult (11-22-2016 10:10) Bacteri 11-22- [id number] complet a XXX 017 00 not ed Anaerob 10:10 isolate e+Aerob d e Cult (qualif ier value) SCT NM42 NO ACID FAST BACILLI ISOLATE D AT 6 WEEKS L Comment: not isolated (qualifier value) Bacteri [id number] complet a XXX 017 00 not ed Anaerob 10:10 isolate e+Aerob d e Cult (qualif ier value) SCT NM21 NO ACID FAST BACILLI ISOLATE D AT 3 WEEKS L Comment: not isolated (qualifier value) Fungus Tiss Cult (11-22-2016 10:10) Bacteri [id number] complet a XXX 017 03 ed Anaerob 10:10 sample: e+Aerob fungus e Cult not isolate d (findin g) SCT NF42 NO FUNGAL GROWTH AT 6 WEEKS L Bacteri [id number] complet a XXX 017 03 ed Anaerob 10:10 sample: e+Aerob fungus e Cult not isolate d (findin g) SCT NF21 NO FUNGAL GROWTH AT 3 WEEKS L Bacteria XXX Anaerobe Cult (11-22-2016 10:10) Bacteri 11-22- C48 ... complet a XXX 017 IF ed Anaerob 10:10 WORKUP e+Aerob REQUIRE e Cult D, CALL BACT ([id number]) WITHIN 48 HRS. L Comment: Alpha-hemolytic streptococcus (organism) thiogylcolate broth (substance) ... IF Comment: WORKUP REQUIRED, CALL BACT ([id number]) WITHIN 48 HRS. Comment: not isolated (qualifier value) Bacteri [id number] complet a XXX 017 2 ed Anaerob 10:10 Alpha-h e+Aerob emolyti e Cult c strepto coccus (organi sm) SCT ALPH ALPHA HEMOLYT IC STREPTO COCCUS L Bacteria Tiss Cult (11-22-2016 10:10) Bacteri 11-22- [id number] complet a XXX 017 06 No ed Anaerob 10:10 growth e+Aerob (qualif e Cult ier value) SCT NG4 NO GROWTH DAY 4. L Comment: No growth (qualifier value) CC XXX NOTAP complet VC-aCnc 017 NOT ed 10:10 APPLICA BLE L Glucose BldC Glucomtr-[facility] (08-26-2012 11:55) Glucose 449 70-110 High complet BldC 013 mg/dl alert ed Glucomt 11:55 r-[facility] PROTIME/INR (08-26-2012 07:15) PROTHRO 41.1 9.8-11. complet MBIN 013 SECONDS 0 ed TIME 07:15 INR Bld 4.01 0.9-1.1 complet 013 UNK ed 07:15 Glucose BldC Glucom-[facility] (08-26-2012 06:49) Glucose 112 70-110 complet BldC 013 mg/dl ed Glucomt 06:49 r-[facility] BASIC METABOLIC PANEL (08-26-2012 06:27) Glucose 204 [...] 1 ed SerPl-m 06:27 Cnc Glucose dC Glucomtr-[facility] (08-25-2012 21:09) Glucose 289 70-110 complet BldC 013 mg/dl ed Glucomt 21:09 r-[facility] Glucose BldC [facility]tr-[facility] (08-25-2012 16:57) Glucose 2 375 70-110 High complet BldC 013 mg/dl alert ed Glucomt 16:57 r-[facility] Glucose BldC [facility]tr-[facility] (08-25-2012 12:04) Glucose 08-25-2 454 70-110 High complet BldC 013 mg/dl alert ed Glucomt 12:04 r-[facility] Glucose BldC Glucomtr-[facility] (08-25-2012 06:10) Glucose 08-25-2 386 70-110 High complet BldC 013 mg/dl alert ed Glucomt 06:10 r-[facility] COMPREHENSIVE METABOLIC PANEL (08-24-2012 23:30) Glucose 327 74-106 complet 013 mg/dL ed Bld-mCn 23:30 c BUN 29 7-18 complet Bld-mCn 013 mg/dL ed c 23:30 Creat 1.5 0.6-1.0 complet SerPl-m 013 mg/dL ed Cnc 23:30 ESTIMAT 2 76 50-200 complet ED 013 ML/MIN ed CREATIN 23:30 INE CLEARAN CE GFR 35 59- complet (ESTIMA 013 ML/MIN ed LAKSHMI) 23:30 Sodium 08-24- 139 136-145 complet SerPl-s 013 mmoL/L ed Cnc 23:30 Potassi 4.0 3.5-5.1 complet um 013 mmoL/L ed SerPl-s 23:30 Cnc Chlorid 102 98-107 complet e 013 mmoL/L ed SerPl-s 23:30 Cnc CO2 08-24-2 32 21.0-32 complet SerPl-s 013 mmoL/L .0 ed Cnc 23:30 Calcium 08-24-2 8.3 8.5-10. complet 013 mg/dL 1 ed SerPl-m 23:30 Cnc Prot 08-24-2 6.3 6.4-8.2 complet SerPl-m 013 gm/dL ed Cnc 23:30 Albumin 08-24-2 3.3 3.4-5.0 complet 013 gm/dL ed SerPl-m 23:30 Cnc Globuli 03-25-2 3.0 1.3-3.2 complet n 013 gm/dL ed Ser-mCn 23:30 c Albumin 08-24-2 1.1 UNK 1.1-1.8 complet /Glob 013 ed SerPl-m 23:30 Rto Bilirub 08-24-2 0.3 0.2-1.0 complet 013 mg/dL ed SerPl-m 23:30 Cnc AST 08-24-2 9 U/L 15-37 complet SerPl-c 013 ed Cnc 23:30 ALT 2 46 U/L 30-65 complet SerPl-c 013 ed Cnc 23:30 ALP 90 U/L 50-136 complet SerPl-c 013 ed Cnc 23:30 BNP Bld-mCnc (08-24-2012 23:30) BNP 08-24-2 134 0-100 complet Bld-mCn 013 pg/mL ed c 23:30 PROTIME/INR (08-24-2012 23:30) PROTHRO 08-24-2 78.0 9.8-11. complet MBIN 013 SECONDS 0 ed TIME 23:30 INR Bld 08-24-2 7.65 0.9-1.1 complet 013 UNK ed 23:30 CBC with AUTO DIFF (08-24-2012 23:30) WBC # 08-24-2 8.5 4.8-10. complet Bld 013 K/MM3 8 ed Auto 23:30 RBC # 08-24-2 4.35 4.2-5.4 complet Bld 013 M/mm3 ed Auto 23:30 Hgb 08-24-2 11.5 12.2-16 complet Bld-mCn 013 g/dL .2 ed c 23:30 Hct Fr 08-24-2 36.1 % 37.0-47 complet Bld 013 .0 ed 23:30 MCV RBC 08-24-2 83.0 fl 82.2-97 complet 013 .8 ed 23:30 MCH RBC 08-24-2 26.5 pg 27-31.2 complet Qn 013 ed Auto 23:30 MEAN 08-24-2 32.0 31.8-35 complet CORPUSC 013 g/dl .4 ed ULAR 23:30 HGB CONC RDW RBC 03-25-2 19.1 % 11.5-17 complet Auto 013 .5 ed 23:30 Platele 25-2 169 142-424 complet t Bld 013 K/mm3 ed Ql 23:30 Manual MEAN 08-24-2 7.6 fl 7.4-10. complet PLATELE 013 4 ed T 23:30 VOLUME Granulo 08-24-2 81.5 % 37.0-80 complet cytes 013 .0 ed Fr Bld 23:30 Auto LYMPH % 25-2 12.1 % 10-50.0 complet 013 ed 23:30 Monocyt 25-2 5.4 % 1.7-9.3 complet es Fr 013 ed Bld 23:30 Auto Eosinop 25-2 0.9 % 0.1-12. complet hil Fr 013 0 ed Bld 23:30 Auto Basophi 25-2 0.1 % 0.1-2.0 complet ls Fr 013 ed Bld 23:30 Auto Granulo 25-2 6.9 1.8-7.8 complet cytes # 013 K/mm3 ed Bld 23:30 Auto Lymphoc 25-2 1.0 0.7-4.5 complet ytes Fr 013 K/mm3 ed Bld 23:30 Auto Monocyt 25-2 0.5 0.1-1.0 complet es # 013 K/mm3 ed Bld 23:30 Auto Eosinop 25-2 0.1 0.0-0.4 complet hil # 013 K/mm3 ed Bld 23:30 Auto Basophi 25-2 0.0 0-0.2 complet ls # 013 K/MM3 ed Bld 23:30 Auto Encounters Encounter Start End Date Code Location Performer Type Date Inpatient IMP Andrade Ramachandran MD (IN) 3 23:20 3 16:40 [facility] ANDRADE - 0 0 [facility]
--- OUTSIDE RECORDS SUMMARY | 2017-04-07 03:56 | External Medical Summary Rpt | CCD ---
Author Author , CHRISTIANA VILLEDA Address Unknown Phone [email or web address] 2 Care Team Providers Care Plate Filler Name Role Phone [facility] Unavailable Unavailable INC, [facility] Unavailable Unavailable HOSPITAL P, [facility] P Raffy Ramachandran MD, Unavailable Unavailable aRffy Ramachandran MD Purpose Continuity of Care Document - 04-12-2010 through 2016 Problems Code Diagnosis DOS Provider Status 43875 DIAB W/O 04-12-2010 [facility] COMP TYPE [facility] II/UNS NOT HOSPITAL P STATED UNCNTRL 4019 UNSPECIFIED 04-12-2010 [facility] ESSENTIAL [facility] P N 51296 ATRIAL 04-12-2010 [facility] 25219 OTHER CHEST 04-12-2010 [facility] PAIN [facility] P V5861 LONG-TERM 04-12-2010 [facility] (CURRENT[facility] USE OF INC ANTICOAGULA NTS V5867 LONG-TERM 04-12-2010 [facility] USE OF [facility] P 401.9 Essential [facility] 427.31 Atrial [place] [facility] [address] [place] acquired [facility] 519.11 Bronchospas [facility] [id number] Diabetes [place] mellitus [facility] D64.9 ANEMIA, UNSPECIFIED E11.9 TYPE 2 DIABETES [...] in a TO 00 03 0 No IN 18 -2 OL 61 6- Lo 08 [...] RO 40 -2 SE 96 6- Lo KS 10 20 ng DE 20 13 er [...] ve 10 0 Un it s/ Ml IN 51 03 1 No AV 07 -2 [...] RO 40 -2 SE 96 5- Lo KS 10 20 ng DE 20 13 er [...] XXX Ql Cult (11-22-2016 10:10) Bacteri 11-22- [id number] complet a XXX 017 00 not ed Anaerob 10:10 isolate e+Aerob d e Cult (qualif ier value) SCT NM42 NO ACID FAST BACILLI ISOLATE D AT 6 WEEKS L Comment: not isolated (qualifier value) Bacteri [id number] complet a XXX 017 00 not ed Anaerob 10:10 isolate e+Aerob d e Cult (qualif ier value) SCT NM21 NO ACID FAST BACILLI ISOLATE D AT 3 WEEKS L Comment: not isolated (qualifier value) Fungus Tiss Cult (11-22-2016 10:10) Bacteri [id number] complet a XXX 017 03 ed Anaerob 10:10 sample: e+Aerob fungus e Cult not isolate d (findin g) SCT NF42 NO FUNGAL GROWTH AT 6 WEEKS L Bacteri [id number] complet a XXX 017 03 ed Anaerob 10:10 sample: e+Aerob fungus e Cult not isolate d (findin g) SCT NF21 NO FUNGAL GROWTH AT 3 WEEKS L Bacteria XXX Anaerobe Cult (11-22-2016 10:10) Bacteri 11-22- C48 ... complet a XXX 017 IF ed Anaerob 10:10 WORKUP e+Aerob REQUIRE e Cult D, CALL BACT ([id number]) WITHIN 48 HRS. L Comment: Alpha-hemolytic streptococcus (organism) thiogylcolate broth (substance) ... IF Comment: WORKUP REQUIRED, CALL BACT ([id number]) WITHIN 48 HRS. Comment: not isolated (qualifier value) Bacteri [id number] complet a XXX 017 2 ed Anaerob 10:10 Alpha-h e+Aerob emolyti e Cult c strepto coccus (organi sm) SCT ALPH ALPHA HEMOLYT IC STREPTO COCCUS L Bacteria Tiss Cult (11-22-2016 10:10) Bacteri 11-22- [id number] complet a XXX 017 06 No ed Anaerob 10:10 growth e+Aerob (qualif e Cult ier value) SCT NG4 NO GROWTH DAY 4. L Comment: No growth (qualifier value) CC XXX NOTAP complet VC-aCnc 017 NOT ed 10:10 APPLICA BLE L Glucose BldC [facility]comtr-[facility] (08-26-2012 11:55) Glucose 449 70-110 High complet BldC 013 mg/dl alert ed Glucomt 11:55 r-[facility] PROTIME/INR (08-26-2012 07:15) PROTHRO 41.1 9.8-11. complet MBIN 013 SECONDS 0 ed TIME 07:15 INR Bld 4.01 0.9-1.1 complet 013 UNK ed 07:15 Glucose BldC Glucom-[facility] (08-26-2012 06:49) Glucose 112 70-110 complet BldC 013 mg/dl ed Glucomt 06:49 r-[facility] BASIC METABOLIC PANEL (08-26-2012 06:27) Glucose 204 [...] 1 ed SerPl-m 06:27 Cnc Glucose dC Glucomtr-[facility] (08-25-2012 21:09) Glucose 289 70-110 complet BldC 013 mg/dl ed Glucomt 21:09 r-[facility] Glucose BldC Glucomtr-[facility] (08-25-2012 16:57) Glucose 2 375 70-110 High complet BldC 013 mg/dl alert ed Glucomt 16:57 r-[facility] Glucose BldC Glucomtr-[facility] (08-25-2012 12:04) Glucose 08-25-2 454 70-110 High complet BldC 013 mg/dl alert ed Glucomt 12:04 r-[facility] Glucose BldC Glucomtr-[facility] (08-25-2012 06:10) Glucose 08-25-2 386 70-110 High complet BldC 013 mg/dl alert ed Glucomt 06:10 r-[facility] COMPREHENSIVE METABOLIC PANEL (08-24-2012 23:30) Glucose 327 [...] Ramachandran MD (IN) 3 23:20 3 16:40 [facility] ANDRADE - 0 0 [facility]
--- OUTSIDE RECORDS SUMMARY | 2017-04-07 03:57 | External Medical Summary Rpt | CCD ---
Author Author , MURPHY VILLEDA Address Unknown Phone [email or web address] Care Team Providers Care Nanotechnician Name Role Phone [facility] Unavailable Unavailable INC, [facility] Unavailable Unavailable HOSPITAL P, [facility] P Purpose Continuity of Care Document - 04-12-2010 through 2016 Problems Code Diagnosis DOS Provider Status 04181 DIAB W/O 04-12-2010 [facility] COMP TYPE [facility] II/UNS NOT HOSPITAL P STATED UNCNTRL 4019 UNSPECIFIED 04-12-2010 [facility] ESSENTIAL [facility] HYPERTENSIO HOSPITAL P N 54002 ATRIAL 04-12-2010 [facility] 31643 OTHER CHEST 04-12-2010 [facility] P V5861 LONG-TERM 04-12-2010 [facility] (CURRENT[facility] USE OF INC ANTICOAGULA NTS V5867 LONG-TERM 04-12-2010 [facility] USE OF [facility] P Encounters Encounter Start End Date Code Location Performer Type Date HOSPITAL [facility] - 0 0 [facility]
--- OUTSIDE RECORDS SUMMARY | 2017-04-07 03:57 | External Medical Summary Rpt ---
Author Author CHRISTIANA Maggie, [employer] Organization [employer] Address Unknown Phone Unavailable Results Basic metabolic panel in Blood Observa Value Referen Units Interpr Notes Date tion ce etation Range Urea 7 - 18 mg/dL High No Sep 16 nitrogen informati 2017 7:59 [Mass/vol on in AM ume] in source Serum or data Plasma Calcium 8.5 - mg/dL Normal No Sep 16 [Mass/vol 10.1 informati 2017 7:59 ume] in on in AM Serum or source Plasma data Chloride 98 - 107 mmoL/L Normal No Sep 16 [Moles/vo informati 2017 7:59 lume] in on in AM Serum or source Plasma data Carbon 21.0 - mmoL/L Normal No Sep 16 dioxide, 32.0 informati 2017 7:59 total on in AM [Moles/vo source lume] in data Serum or Plasma Creatinin 0.55 - mg/dL High No Sep 16 e 1.02 informati 2017 7:59 [Mass/vol on in AM ume] in source Serum or data Plasma Estimated 59- ML/MIN Low REFERENCE Sep 16 RANGE: 2017 7:59 glomerula >60 AM r ML/MIN/1. filtratio 73 SQUARE n rate METERSIf (GF this patient is -A merican, then multiply theresult by 1.210. Glucose 74 - 106 mg/dL High No Sep 16 [Mass/vol informati 2017 7:59 ume] in on in AM Serum or source Plasma data Potassium 3.5 - 5.1 mmoL/L Normal No Sep 16 informati 2017 7:59 [Moles/vo on in AM lume] in source Serum or data Plasma Sodium 136 - 145 mmoL/L Normal No Sep 16 [Moles/vo informati 2017 7:59 lume] in on in AM Serum or source Plasma data Basic metabolic panel in Blood Observa Value Referen Units Interpr Notes Date tion ce etation Range Urea 7 - 18 mg/dL High No Jan 30 nitrogen informati 2017 1:00 [Mass/vol on in PM ume] in source Serum or data Plasma Calcium 8.5 - mg/dL Normal No Jan 30 [Mass/vol 10.1 informati 2016 1:00 ume] in on in PM Serum or source Plasma data Chloride 98 - 107 mmoL/L Normal No Jan 30 [Moles/vo informati 2016 1:00 lume] in on in PM Serum or source Plasma data Carbon 21.0 - mmoL/L Normal No Jan 30 dioxide, 32.0 informati 2016 1:00 total on in PM [Moles/vo source lume] in data Serum or Plasma Creatinin 0.55 - mg/dL High No Jan 30 e 1.02 informati 2016 1:00 [Mass/vol on in PM ume] in source Serum or data Plasma Estimated 59- ML/MIN Low REFERENCE Jan 30 RANGE: 2016 1:00 glomerula >60 PM r ML/MIN/1. filtratio 73 SQUARE n rate METERSIf (GF this patient is -A merican, then multiply theresult by 1.210. Glucose 74 - 106 mg/dL High No Jan 30 [Mass/vol informati 2016 1:00 ume] in on in PM Serum or source Plasma data Potassium 3.5 - 5.1 mmoL/L Normal No Jan 30 informati 2016 1:00 [Moles/vo on in PM lume] in source Serum or data Plasma Sodium 136 - 145 mmoL/L Normal No Jan 30 [Moles/vo informati 2016 1:00 lume] in on in PM Serum or source Plasma data Basic metabolic panel in Blood Observa Value Referen Units Interpr Notes Date tion ce etation Range Urea 7 - 18 mg/dL Normal No Jan 24 nitrogen informati 2016 8:28 [Mass/vol on in AM ume] in source Serum or data Plasma Calcium 8.5 - mg/dL Normal No Jan 24 [Mass/vol 10.1 informati 2016 8:28 ume] in on in AM Serum or source Plasma data Chloride 98 - 107 mmoL/L Normal No Jan 24 [Moles/vo informati 2016 8:28 lume] in on in AM Serum or source Plasma data Carbon 21.0 - mmoL/L Normal No Jan 24 dioxide, 32.0 informati 2016 8:28 total on in AM [Moles/vo source lume] in data Serum or Plasma Creatinin 0.55 - mg/dL High No Jan 24 e 1.02 informati 2016 8:28 [Mass/vol on in AM ume] in source Serum or data Plasma Estimated 59- ML/MIN Low REFERENCE Jan 24 RANGE: 2016 8:28 glomerula >60 AM r ML/MIN/1. filtratio 73 SQUARE n rate METERSIf (GF this patient is -A merican, then multiply theresult by 1.210. Glucose 74 - 106 mg/dL High No Jan 24 [Mass/vol informati 2016 8:28 ume] in on in AM Serum or source Plasma data Potassium 3.5 - 5.1 mmoL/L Low alert Jan 24 2016 8:28 [Moles/vo CRITICAL AM lume] in RESULTS Serum or Plasma RESU LTS CALLED TO: WASHINGTON Murphy CNA WITH ARTEM THAKKAR AND SANJAY 01/24/17 0903 [address] Sodium 136 - 145 mmoL/L Normal No Jan 24 [Moles/vo informati 2016 8:28 lume] in on in AM Serum or source Plasma data Glucose [Mass/volume] in Capillary blood by Glucometer Observa Value Referen Units Interpr Notes Date tion ce etation Range Glucose 70 - 110 mg/dl Normal No Jan 12 [Mass/vol informati 2016 6:21 ume] in on in AM Capillary source blood by data Glucomete r Basic metabolic panel in Blood Observa Value Referen Units Interpr Notes Date tion ce etation Range Urea 7 - 18 mg/dL No No Jan 12 nitrogen informati informati 2016 5:58 [Mass/vol on in on in AM ume] in source source Serum or data data Plasma Calcium 8.5 - mg/dL Normal No Jan 12 [Mass/vol 10.1 informati 2016 5:58 ume] in on in AM Serum or source Plasma data Chloride 98 - 107 mmoL/L Normal No Jan 12 [Moles/vo informati 2016 5:58 lume] in on in AM Serum or source Plasma data Carbon 21.0 - mmoL/L Normal No Jan 12 dioxide, 32.0 informati 2016 5:58 total on in AM [Moles/vo source lume] in data Serum or Plasma Creatinin 0.55 - mg/dL High No Jan 12 e 1.02 informati 2016 5:58 [Mass/vol on in AM ume] in source Serum or data Plasma Creatinin 50 - 200 ML/MIN No No Jan 12 e renal informati informati 2016 5:58 clearance on in on in AM source source predicted data data by Cockcroft -Gault formula Estimated 59- ML/MIN Low REFERENCE Jan 12 RANGE: 2016 5:58 glomerula >60 AM r ML/MIN/1. filtratio 73 SQUARE n rate METERSIf (GF this patient is -A merican, then multiply theresult by 1.210. Glucose 74 - 106 mg/dL Normal No Jan 12 [Mass/vol informati 2016 5:58 ume] in on in AM Serum or source Plasma data Potassium 3.5 - 5.1 mmoL/L Low No Jan 12 informati 2016 5:58 [Moles/vo on in AM lume] in source Serum or data Plasma Sodium 136 - 145 mmoL/L Normal Jan 12 [Moles/vo ati 2016 5:58 lume] in on in AM Serum or source Plasma data CBC W Auto Differential panel in Blood Observa Value Referen Units Interpr Notes Date tion ce etation Range Basophils 0 - 0.2 K/MM3 Normal No Jan 12 informati 2016 5:58 [#/volume on in AM ] in source Blood by data Automated count Basophils 0.1 - 2.0 % Normal No Jan 12 informati 2016 5:58 leukocyte on in AM s in source Blood by data Automated count Eosinophi 0.0 - 0.4 K/mm3 Normal No Jan 12 ls informati 2016 5:58 [#/volume on in AM ] in source Blood by data Automated count Eosinophi 0.1 - % Normal Jan 12 ls/100 12.0 informati 2016 5:58 leukocyte on in AM s in source Blood by data Automated count Granulocy 1.8 - 7.8 K/mm3 Normal No Jan 12 michelle informati 2016 5:58 [#/volume on in AM ] in source Blood by data Automated count Granulocy 37.0 - % Normal No Jan 12 michelle/100 80.0 informati 2016 5:58 leukocyte on in AM s in source Blood by data Automated count Hematocri 37.0 - % Low No Jan 12 t [Volume 47.0 informati 2017 5:58 on in AM Fraction] source of Blood data Hemoglobi 12.2 - g/dL Low No Jan 12 n 16.2 informati 2017 5:58 [Mass/vol on in AM ume] in source Blood data Lymphocyt 0.7 - 4.5 K/mm3 Normal No Jan 12 es informati 2017 5:58 [#/volume on in AM ] in source Unspecifi data ed specimen by Automated count Lymphocyt 10 - 50.0 % Normal No Jan 12 es informati 2017 5:58 [#/volume on in AM ] in source Unspecifi data ed specimen by Automated count Erythrocy 27 - 31.2 pg Low No Jan 12 te mean informati 2017 5:58 corpuscul on in AM ar source hemoglobi data n [Entitic mass] Erythrocy 31.8 - g/dl Low Jan 12 te mean 35.4 informati 2017 5:58 corpuscul on in AM ar source hemoglobi data n concentra tion [Mass/vol ume] by Automated count Erythrocy 82.2 - fl Low Jan 12 te mean 97.8 informati 2017 5:58 corpuscul on in AM ar volume source [Entitic data volume] by Automated count Monocytes 0.1 - 1.0 K/mm3 Normal No Jan 12 informati 2017 5:58 [#/volume on in AM ] in source Blood by data Automated count Monocytes 1.7 - 9.3 % High No Dec 13 /100 informati 2017 5:58 leukocyte on in AM s in source Blood by data Automated count Platelet 7.4 - fl Low Jan 12 mean 10.4 informati 2017 5:58 volume on in AM [Entitic source volume] data in Blood by Automated count Platelets 142 - 424 K/mm3 Normal No Jan 12 informati 2017 5:58 [#/volume on in AM ] in source Blood data Erythrocy 4.2 - 5.4 M/mm3 Normal No Jan 12 michelle informati 2017 5:58 [#/volume on in AM ] in source Amniotic data fluid Erythrocy 11.5 - % Normal No Jan 12 te 17.5 informati 2017 5:58 distribut on in AM ion width source [Entitic data volume] by Automated count Leukocyte 4.8 - K/MM3 Low No Jan 12 s 10.8 informati 2017 5:58 [#/volume on in AM ] in source Blood data Glucose [Mass/volume] in Capillary blood by Glucometer Observa Value Referen Units Interpr Notes Date tion ce etation Range Glucose 70 - 110 mg/dl High No Jan 11 [Mass/vol informati 2017 8:00 ume] in on in PM Capillary source blood by data Glucomete r Glucose [Mass/volume] in Capillary blood by Glucometer Observa Value Referen Units Interpr Notes Date tion ce etation Range Glucose 70 - 110 mg/dl No No Jan 11 [Mass/vol informati informati 2016 4:33 ume] in on in on in PM Capillary source source blood by data data Glucomete r Glucose [Mass/volume] in Capillary blood by Glucometer Observa Value Referen Units Interpr Notes Date tion ce etation Range Glucose 70 - 110 mg/dl High No Jan 11 [Mass/vol informati 2016 ume] in on in 11:58 AM Capillary source blood by data Glucomete r Glucose [Mass/volume] in Capillary blood by Glucometer Observa Value Referen Units Interpr Notes Date tion ce etation Range Glucose 70 - 110 mg/dl Normal No Jan 11 [Mass/vol informati 2016 6:21 ume] in on in AM Capillary source blood by data Glucomete r Thyroxine (T4) [Mass/volume] in Serum or Plasma Observa Value Referen Units Interpr Notes Date tion ce etation Range Thyroxine 4.7 - ug/dl Low No Jan 10 (T4) 13.3 informati 2017 9:30 [Mass/vol on in PM ume] in source Serum or data Plasma Thyrotropin [Units/volume] in Serum or Plasma Observa Value Referen Units Interpr Notes Date tion ce etation Range Thyrotrop 0.358 - uIU/ml No No Jan 10 in 3.740 informati informati 2017 9:30 [Units/vo on in on in PM lume] in source source Serum or data data Plasma CBC W Auto Differential panel in Blood Observa Value Referen Units Interpr Notes Date tion ce etation Range Basophils 0 - 0.2 K/MM3 Normal No Jan 10 informati 2016 9:30 [#/volume on in PM ] in source Blood by data Automated count Basophils 0.1 - 2.0 % Normal No Jan 10 informati 2017 9:30 leukocyte on in PM s in source Blood by data Automated count Eosinophi 0.0 - 0.4 K/mm3 Normal No Jan 10 ls informati 2016 9:30 [#/volume on in PM ] in source Blood by data Automated count Eosinophi 0.1 - % Normal No Jan 10 ls/100 12.0 informati 2017 9:30 leukocyte on in PM s in source Blood by data Automated count Granulocy 1.8 - 7.8 K/mm3 Normal No Jan 10 michelle informati 2016 9:30 [#/volume on in PM ] in source Blood by data Automated count Granulocy 37.0 - % Normal No Jan 10 michelle/100 80.0 informati 2016 9:30 leukocyte on in PM s in source Blood by data Automated count Hematocri 37.0 - % Low No Jan 10 t [Volume 47.0 informati 2016 9:30 on in PM Fraction] source of Blood data Hemoglobi 12.2 - g/dL Low No Jan 10 n 16.2 informati 2016 9:30 [Mass/vol on in PM ume] in source Blood data Lymphocyt 0.7 - 4.5 K/mm3 Normal No Jan 10 es informati 2016 9:30 [#/volume on in PM ] in source Unspecifi data ed specimen by Automated count Lymphocyt 10 - 50.0 % Normal No Jan 10 es informati 2016 9:30 [#/volume on in PM ] in source Unspecifi data ed specimen by Automated count Erythrocy 27 - 31.2 pg Low No Jan 10 te mean informati 2016 9:30 corpuscul on in PM ar source hemoglobi data n [Entitic mass] Erythrocy 31.8 - g/dl Normal No Jan 10 te mean 35.4 informati 2016 9:30 corpuscul on in PM ar source hemoglobi data n concentra tion [Mass/vol ume] by Automated count Erythrocy 82.2 - fl Low No Jan 10 te mean 97.8 informati 2016 9:30 corpuscul on in PM ar volume source [Entitic data volume] by Automated count Monocytes 0.1 - 1.0 K/mm3 Normal No Jan 10 informati 2016 9:30 [#/volume on in PM ] in source Blood by data Automated count Monocytes 1.7 - 9.3 % High No Jan 10 / informati 2016 9:30 leukocyte on in PM s in source Blood by data Automated count Platelet 7.4 - fl Low No Jan 10 mean 10.4 informati 2017 9:30 volume on in PM [Entitic source volume] data in Blood by Automated count Platelets 142 - 424 K/mm3 Normal No Dec 11 informati 2017 9:30 [#/volume on in PM ] in source Blood data Erythrocy 4.2 - 5.4 M/mm3 Low No Jan 10 michelle informati 2016 9:30 [#/volume on in PM ] in source Amniotic data fluid Erythrocy 11.5 - % Normal Jan 10 te 17.5 informati 2016 9:30 distribut on in PM ion width source [Entitic data volume] by Automated count Leukocyte 4.8 - K/MM3 Low No Jan 10 s 10.8 informati 2016 9:30 [#/volume on in PM ] in source Blood data INR in Blood by Coagulation assay Observa Value Referen Units Interpr Notes Date tion ce etation Range IS PATIENT ON ANTICOAGULANTS? Y LIST ANTICOAGULANTS: COUMADIN INR in 0.9 - 1.1 No High INDICATIO Jan 10 Blood by informati N 2016 9:20 Coagulati on in PM on assay source INR data RANGETHER APY FOR DVT, PE, ATRIAL FIB; 2.0 - 3.0PROPHY LAXIS FOR VTETHERAP Y FOR MECHANICA L HEART 2.5 - 3.5VALVE; PREVENTIO N OF SYSTEMICE MBOLISM SECONDARY TO AMI Prothromb 9.4 - SECONDS High No Jan 10 in time 11.8 informati 2017 9:20 (PT) in on in PM Platelet source poor data plasma by Coagulati on assay
--- OUTSIDE RECORDS SUMMARY | 2017-04-07 03:57 | External Medical Summary Rpt ---
[...] - 5.4 M/mm3 Low No Jan 10 imchelle informati 2016 9:30 [#/volume on in PM [...]
--- OUTSIDE RECORDS SUMMARY | 2017-04-07 03:57 | External Medical Summary Rpt | CCD ---
Author Author , MURPHY Organization MURPHY Address Unknown Phone [email or web address] Immunization Name Date Rout CVX Reac Dose Comm Prov Is Faci e tion ent ider Refu lity Give sed n PPV2 07-2 33 999 Hist D203 No D203 3 8-20 oric 45 45 16 al Info rmat ion - Sour ce Unsp ecif ied
--- OUTSIDE RECORDS SUMMARY | 2017-04-07 03:57 | External Medical Summary Rpt | CCD ---
Author Author , MURPHY VILLEDA Address Unknown Phone [email or web address] Providers Care Reference Investigator Name Role Phone [facility] Unavailable Unavailable [facility], [facility] Unavailable Unavailable HOSPITAL P, [facility] P Purpose Continuity of Care Document - 04-12-2010 through 2016 Problems Code Diagnosis DOS Provider Status 36056 DIAB W/O 04-12-2010 [facility] COMP TYPE [facility] II/UNS NOT HOSPITAL P STATED UNCNTRL 4019 UNSPECIFIED 04-12-2010 [facility] ESSENTIAL [facility] P N 43130 ATRIAL 04-12-2010 [facility] 34632 OTHER CHEST 04-12-2010 [facility] P V5861 LONG-TERM 04-12-2010 [facility] (CURRENT) [facility] USE OF [facility] ANTICOAGULA NTS [id number] LONG-TERM 04-12-2010 [facility] USE OF [facility] INSULIN [facility] P Encounters Encounter Start End Date Code Location Performer Type Date HOSPITAL [facility] - 0 0 [facility]
--- OUTSIDE RECORDS SUMMARY | 2017-04-07 03:57 | External Medical Summary Rpt | CCD ---
Author Author , MURPHY Organization MURPHY Address Unknown Phone [email or web address] Immunization Name Date Rout CVX Reac Dose Comm Prov Is Faci e tion ent ider Refu lity Give sed n PPV2 07-2 33 999 Hist D203 No D203 3 8-20 oric 45 45 16 al Info rmat ion - Sour ce Unsp ecif ied
[2017-04-07 04:08] LABS: BUN 20 mg/dL (7-18)
[2017-04-07 04:11] LABS: GFR (ESTIMATED) 38 ML/MIN (59-)
[2017-04-07 04:14] LABS: HEMOGLOBIN 10.6 g/dL (12.2-16.2); LYMPH # 0.9 K/mm3 (0.7-4.5); LYMPH % 18.3 % (10-50.0)
--- NOTE | 2017-04-07 05:59 | RADIOLOGY REPORT PS360 ---
CHEST-PORTABLE HISTORY: Tachycardia rapid hr ORDERING PHYSICIAN: Douglas Wagoner MD PATIENT AGE: 66 years COMPARISON: 01/10/2017 FINDINGS: Mild cardiomegaly without failure. No lobar consolidation or collapse. No acute bony anomalies. IMPRESSION: No change mild cardiomegaly.
--- OUTSIDE RECORDS SUMMARY | 2017-04-07 06:21 | External Medical Summary Rpt | CCD ---
Author Author , CHRISTIANA VILLEDA Address Unknown Phone [email or web address] Care Team Providers Care Emr Implementation Specialist Name Role Phone [facility] Unavailable Unavailable INC, [facility] Unavailable Unavailable HOSPITAL P, [facility] Raffy Ramachandran MD, Unavailable Unavailable Raffy Ramachandran MD Purpose Continuity of Care Document - 04-12-2010 through 2016 Problems Code Diagnosis DOS Provider Status 53285 DIAB W/O 04-12-2010 [facility] COMP TYPE [facility] II/UNS NOT HOSPITAL P STATED UNCNTRL 4019 UNSPECIFIED 04-12-2010 [facility] ESSENTIAL [facility] P N 04648 ATRIAL 04-12-2010 [facility] 34214 OTHER CHEST 04-12-2010 [facility] PAIN [facility] P [id number] LONG-TERM 04-12-2010 [facility] (CURRENT) [facility] USE OF INC ANTICOAGULA NTS V5867 LONG-TERM 04-12-2010 [facility] USE OF [facility] P 401.9 Essential [facility] 427.31 [facility] [place] acquired [facility] 519.11 Bronchospas [facility] [id number] Diabetes Alba mellitus [facility] D64.9 ANEMIA, UNSPECIFIED E11.9 TYPE 2 DIABETES [...] RO 40 -2 SE 96 6- Lo DE 10 20 ng DE 20 13 er [...] RO 40 -2 SE 96 5- Lo DE 10 20 ng DE 20 13 er [...] Order Detail nces retati t Range on Whole blood INR measurement (04-07-2017 04:05) Comment: IS PATIENT ON ANTICOAGULANTS? Y Comment: LIST ANTICOAGULANTS: Comment: WARFARIN Prothro = 67.2 9.4-11. complet mbin 017 SECONDS 8 ed time 04:05 (PT) in platele t poor p Comment: NOTIFICATION RESULT Whole = 6.11 0.9-1.1 complet blood 017 ed INR 04:05 measure ment Comment: NOTIFICATION RESULT Comment: INDICATION INR RANGE Comment: Comment: THERAPY FOR DVT, PE, ATRIAL FIB; 2.0 - 3.0 Comment: PROPHYLAXIS FOR VTE Comment: Comment: THERAPY FOR MECHANICAL HEART 2.5 - 3.5 Comment: VALVE; PREVENTION OF SYSTEMIC Comment: EMBOLISM SECONDARY TO AMI CBC w auto diff (04-07-2017 04:05) Blood = 4.7 4.8-10. complet leukocy 017 K/MM3 8 ed michelle 04:05 count (number /volume ) Automat = 16.7 11.5-17 complet ed 017 % .5 ed erythro 04:05 cyte distrib ution width Red = 4.36 4.2-5.4 complet blood 017 M/mm3 ed cell 04:05 count Blood = 275 142-424 complet platele 017 K/mm3 ed t count 04:05 Automat = 7.5 7.4-10. complet ed 017 fl 4 ed blood 04:05 platele t mean volume teresa Redwood % = 13.2 1.7-9.3 complet 017 % ed 04:05 Absolut = 0.6 0.1-1.0 complet e 017 K/mm3 ed monocyt 04:05 e count Automat = 78.5 82.2-97 complet ed 017 fl .8 ed erythro 04:05 cyte mean corpusc ular v Automat = 30.8 31.8-35 complet ed 017 g/dl .4 ed erythro 04:05 cyte mean corpusc ular h Mean 1106-2 = 24.2 27-31.2 complet corpusc 017 pg ed ular 04:05 hemoglo bin (MCH) determ Lymphoc = 18.3 10-50.0 complet yte 017 % ed count, 04:05 blood, automat ed Absolut = 0.9 0.7-4.5 complet e 017 K/mm3 ed lymphoc 04:05 yte count Blood = 10.6 12.2-16 complet hemoglo 017 g/dL .2 ed bin 04:05 measure ment (mass/v olum Blood = 34.3 37.0-47 complet hematoc 017 % .0 ed rit 04:05 (volume fractio n) Granulo = 60.5 37.0-80 complet cyte 017 % .0 ed percent 04:05 age Blood = 2.8 1.8-7.8 complet granulo 017 K/mm3 ed cytes 04:05 automat ed count (numb Automat = 7.4 % 0.1-12. complet ed 017 0 ed blood 04:05 eosinop hils/10 0 leukocy t Automat = 0.4 0.0-0.4 complet ed 017 K/mm3 ed blood 04:05 eosinop hil count Baso % = 0.6 % 0.1-2.0 complet 017 ed 04:05 Automat = 0.0 0-0.2 complet ed 017 K/MM3 ed blood 04:05 basophi l count (count/ vo Serum or plasma troponin i.cardiac measu (04-07-2017 03:35) Serum < 0.02 0.00-0. complet or 017 ng/mL 06 ed plasma 03:35 troponi n i.cardi ac measu Comprehensive metabolic panel (04-07-2017 03:35) Protein = 7.8 6.4-8.2 complet total 017 gm/dL ed ser/zachery 03:35 s ALT = 23 12-78 complet (SGPT) 017 U/L ed ser/zachery 03:35 s Serum = 41 15-37 complet or 017 U/L ed plasma 03:35 asparta te aminotr ansfera Serum = 136 136-145 complet sodium 017 mmoL/L ed measure 03:35 ment Serum = 4.0 3.5-5.1 complet potassi 017 mmoL/L ed um 03:35 measure ment Serum = 113 74-106 complet or 017 mg/dL ed plasma 03:35 glucose measure ment (mas Serum = 4.8 1.3-3.2 complet globuli 017 gm/dL ed n 03:35 measure ment (mass/v olume) Estimat = 38 59- complet ed 017 ML/MIN ed glomeru 03:35 lar filtrat ion rate (GF Comment: REFERENCE RANGE: >60 ML/MIN/1.73 SQUARE METERS Comment: If this patient is -Mongolian, then multiply the Comment: result by 1.210. Estimat = 56 50-200 complet ion of 017 ML/MIN ed creatin 03:35 ine renal clearan ce Serum = 1.4 0.55-1. complet or 017 mg/dL 02 ed plasma 03:35 creatin ine measure ment ( Carbon = 27 21.0-32 complet dioxide 017 mmoL/L .0 ed 03:35 measure ment Serum = 101 98-107 complet or 017 mmoL/L ed plasma 03:35 chlorid e measure ment (mo Serum = 9.4 8.5-10. complet or 017 mg/dL 1 ed plasma 03:35 calcium measure ment (mas Serum = 20 7-18 complet or 017 mg/dL ed plasma 03:35 urea nitroge n measure men Serum = 0.7 0.2-1.0 complet or 017 mg/dL ed plasma 03:35 total bilirub in measure m Serum = 291 46-116 complet or 017 U/L ed plasma 03:35 alkalin e phospha tase teresa Serum = 3.0 3.4-5.0 complet or 017 gm/dL ed plasma 03:35 albumin measure ment (mas Serum 11-06-2 = 0.6 1.1-1.8 complet or 017 ed plasma 03:35 albumin /globul in mass ra Fungus Tiss Cult (11-22-2016 10:10) Bacteri 11-22- [id number] complet a XXX 017 03 ed Anaerob 10:10 sample: e+Aerob fungus e Cult not isolate d (findin g) SCT NF42 NO FUNGAL GROWTH AT 6 WEEKS L Bacteri [id number] complet a XXX 017 03 ed Anaerob 10:10 sample: e+Aerob fungus e Cult not isolate d (findin g) SCT NF21 NO FUNGAL GROWTH AT 3 WEEKS L Bacteria XXX Anaerobe Cult (11-22-2016 10:10) Bacteri 11-22-2 C48 ... complet a XXX 017 IF ed Anaerob 10:10 WORKUP e+Aerob REQUIRE e Cult D, CALL BACT ([id number]) WITHIN 48 HRS. L Comment: Alpha-hemolytic streptococcus (organism) thiogylcolate broth (substance) ... IF Comment: WORKUP REQUIRED, CALL BACT ([id number]) WITHIN 48 HRS. Comment: not isolated (qualifier value) Bacteri [id number] complet a XXX 017 2 ed Anaerob 10:10 Alpha-h e+Aerob emolyti e Cult c strepto coccus (organi sm) SCT ALPH ALPHA HEMOLYT IC STREPTO COCCUS L Bacteria Tiss Cult (11-22-2016 10:10) Bacteri 11-22- [id number] complet a XXX 017 06 No ed Anaerob 10:10 growth e+Aerob (qualif e Cult ier value) SCT NG4 NO GROWTH DAY 4. L Comment: No growth (qualifier value) CC XXX NOTAP complet VC-aCnc 017 NOT ed 10:10 APPLICA BLE L Mycobacterium XXX Ql Cult (11-22-2016 10:10) Bacteri 11-22- [id number] complet a XXX 017 00 not ed Anaerob 10:10 isolate e+Aerob d e Cult (qualif ier value) SCT NM42 NO ACID FAST BACILLI ISOLATE D AT 6 WEEKS L Comment: not isolated (qualifier value) Bacteri 11-22- [id number] complet a XXX 017 00 not ed Anaerob 10:10 isolate e+Aerob d e Cult (qualif ier value) SCT NM21 NO ACID FAST BACILLI ISOLATE D AT 3 WEEKS L Comment: not isolated (qualifier value) Glucose dC Glucom-[facility] (08-26-2012 11:55) Glucose 449 70-110 High complet BldC 013 mg/dl alert ed [facility] (08-26-2012 07:15) PROTHRO 41.1 9.8-11. complet MBIN 013 SECONDS 0 ed TIME 07:15 INR Bld 4.01 0.9-1.1 complet 013 UNK ed 07:15 Glucose dC [facility]com-[facility] (08-26-2012 06:49) Glucose 112 70-110 complet BldC 013 mg/dl ed [facility]t 06:49 [facility] BASIC METABOLIC PANEL (08-26-2012 06:27) Glucose 204 74-106 complet 013 mg/dL ed Bld-n 06:27 c BUN 27 7-18 complet Bld-mCn [...] mg/dL 1 ed SerPl-m 06:27 Cnc Glucose [facility] (08-25-2012 21:09) Glucose 289 70-110 complet BldC 013 mg/dl ed Glucomt 21:09 r-[facility] Glucose dC Glucomtr-[facility] (08-25-2012 16:57) Glucose 2 375 70-110 High complet BldC 013 mg/dl alert ed Glucomt 16:57 r-[facility] Glucose dC Glucomtr-[facility] (08-25-2012 12:04) Glucose 2 454 70-110 High complet BldC 013 mg/dl alert ed Glucomt 12:04 r-[facility] Glucose dC Glucomtr-[facility] (08-25-2012 06:10) Glucose 2 386 70-110 High complet BldC 013 mg/dl alert ed Glucomt 06:10 r-[facility] COMPREHENSIVE METABOLIC PANEL (08-24-2012 23:30) Glucose [...] 013 gm/dL ed SerPl-m 23:30 Cnc Globuli 08-24-2 3.0 1.3-3.2 complet n 013 gm/dL ed Ser-mCn 23:30 c Albumin 08-24-2 1.1 UNK 1.1-1.8 complet /Glob 013 ed SerPl-m 23:30 Rto Bilirub 08-24-2 0.3 0.2-1.0 complet 013 mg/dL ed SerPl-m 23:30 Cnc AST 08-24-2 9 U/L 15-37 complet SerPl-c 013 ed Cnc 23:30 ALT 08-24-2 46 U/L 30-65 complet SerPl-c 013 ed Cnc 23:30 ALP 08-24-2 90 U/L 50-136 complet SerPl-c 013 ed [...] ed ULAR 23:30 HGB CONC RDW RBC 25-2 19.1 % 11.5-17 complet Auto 013 .5 ed 23:30 Platele 25-2 169 142-424 complet t Bld 013 K/mm3 ed Ql 23:30 Manual MEAN 08-24-2 7.6 fl 7.4-10. complet PLATELE 013 4 ed T 23:30 VOLUME Granulo 25-2 81.5 % 37.0-80 complet cytes 013 .0 ed Fr Bld 23:30 Auto LYMPH % -25-2 12.1 % 10-50.0 complet 013 ed 23:30 Monocyt 25-2 5.4 % 1.7-9.3 complet es Fr 013 ed Bld 23:30 Auto Eosinop -25-2 0.9 % 0.1-12. complet hil Fr 013 0 ed Bld 23:30 Auto Basophi -25-2 0.1 % 0.1-2.0 complet ls Fr 013 ed Bld 23:30 Auto Granulo -25-2 6.9 1.8-7.8 complet cytes # 013 K/mm3 ed Bld 23:30 Auto Lymphoc 25-2 1.0 0.7-4.5 complet ytes Fr 013 K/mm3 ed Bld 23:30 Auto Monocyt -25-2 0.5 0.1-1.0 complet es # 013 K/mm3 ed Bld 23:30 Auto Eosinop -25-2 0.1 0.0-0.4 complet hil # 013 K/mm3 ed Bld 23:30 Auto Basophi -25-2 0.0 0-0.2 complet ls # 013 K/MM3 ed Bld 23:30 Auto Encounters Encounter Start End Date Code Location Performer Type Date Inpatient IMP Andrade Ramachandran MD (IN) 3 23:20 3 16:40 [facility] ANDRADE - 0 0 [facility]
--- OUTSIDE RECORDS SUMMARY | 2017-04-07 06:21 | External Medical Summary Rpt | CCD ---
Author Author , CHRISTIANA VILLEDA Address Unknown Phone [email or web address] Care Team Providers Care Head Bookkeeper Name Role Phone [facility] Unavailable Unavailable INC, [facility] Unavailable Unavailable HOSPITAL P, [facility] P Raffy Ramachandran MD, Unavailable Unavailable Raffy Ramachandran MD Purpose Continuity of Care Document - 04-12-2010 through 2016 Problems Code Diagnosis DOS Provider Status 74567 DIAB W/O 04-12-2010 [facility] COMP TYPE [facility] II/UNS NOT HOSPITAL P STATED UNCNTRL 4019 UNSPECIFIED 04-12-2010 [facility] ESSENTIAL [facility] P N 86322 ATRIAL 04-12-2010 [facility] 18376 OTHER CHEST 04-12-2010 [facility] PAIN [facility] P V5861 LONG-TERM 04-12-2010 [facility] (CURRENT) [facility] USE OF INC ANTICOAGULA NTS V5867 LONG-TERM 04-12-2010 [facility] USE OF [facility] P 401.9 Essential [facility] 427.31 [facility] Is[place] acquired [facility] 519.11 Bronchospas [facility] [id number] Diabetes Isaban mellitus [facility] D64.9 ANEMIA, UNSPECIFIED E11.9 TYPE 2 [...] in a TO 00 03 0 No LA 18 -2 OL 61 6- Lo 08 [...] RO 40 -2 SE 96 6- Lo MD 10 20 ng DE 20 13 er [...] ve 10 0 Un it s/ Ml LA 51 03 1 No AV 07 -2 [...] RO 40 -2 SE 96 5- Lo MD 10 20 ng DE 20 13 er [...] blood 04:05 platele t mean volume teresa Hitchcock % = 13.2 1.7-9.3 complet 017 % [...] SQUARE METERS Comment: If this patient is -Botswanan, then multiply the Comment: result by 1.210. [...] Fungus Tiss Cult (11-22-2016 10:10) Bacteri 11-22- [id number] complet a XXX 017 03 ed Anaerob 10:10 sample: e+Aerob fungus e Cult not isolate d (findin g) SCT NF42 NO FUNGAL GROWTH AT 6 WEEKS L Bacteri [id number] complet a XXX 017 03 ed Anaerob 10:10 sample: e+Aerob fungus e Cult not isolate d (findin g) SCT NF21 NO FUNGAL GROWTH AT 3 WEEKS L Bacteria XXX Anaerobe Cult (11-22-2016 10:10) Bacteri 11-22-2 C48 ... complet a XXX 017 IF ed Anaerob 10:10 WORKUP e+Aerob REQUIRE e Cult D, CALL BACT ([id number]) WITHIN 48 HRS. L Comment: Alpha-hemolytic streptococcus (organism) thiogylcolate broth (substance) ... IF Comment: WORKUP REQUIRED, CALL BACT ([id number]) WITHIN 48 HRS. Comment: not isolated (qualifier value) Bacteri [id number] complet a XXX 017 2 ed Anaerob 10:10 Alpha-h e+Aerob emolyti e Cult c strepto coccus (organi sm) SCT ALPH ALPHA HEMOLYT IC STREPTO COCCUS L Bacteria Tiss Cult (11-22-2016 10:10) Bacteri 11-22- [id number] complet a XXX 017 06 No ed Anaerob 10:10 growth e+Aerob (qualif e Cult ier value) SCT NG4 NO GROWTH DAY 4. L Comment: No growth (qualifier value) CC XXX NOTAP complet VC-aCnc 017 NOT ed 10:10 APPLICA BLE L Mycobacterium XXX Ql Cult (11-22-2016 10:10) Bacteri 11-22- [id number] complet a XXX 017 00 not ed Anaerob 10:10 isolate e+Aerob d e Cult (qualif ier value) SCT NM42 NO ACID FAST BACILLI ISOLATE D AT 6 WEEKS L Comment: not isolated (qualifier value) Bacteri 11-22- [id number] complet a XXX 017 00 not ed Anaerob 10:10 isolate e+Aerob d e Cult (qualif ier value) SCT NM21 NO ACID FAST BACILLI ISOLATE D AT 3 WEEKS L Comment: not isolated (qualifier value) Glucose dC Glucom-[facility] (08-26-2012 11:55) Glucose 449 70-110 High complet BldC 013 mg/dl alert ed [facility] (08-26-2012 07:15) PROTHRO 41.1 9.8-11. complet MBIN 013 SECONDS 0 ed TIME 07:15 INR Bld 4.01 0.9-1.1 complet 013 UNK ed 07:15 Glucose dC Glucom-[facility] (08-26-2012 06:49) Glucose 112 70-110 complet BldC 013 mg/dl ed [facility] 06[facility] BAS[facility] (08-26-2012 06:27) Glucose [...] mg/dL 1 ed SerPl-m 06:27 Cnc Glucose [facility] (08-25-2012 21:09) Glucose 289 70-110 complet BldC 013 mg/dl ed Glucomt 21:09 r-[facility] Glucose dC Glucomtr-[facility] (08-25-2012 16:57) Glucose 2 375 70-110 High complet BldC 013 mg/dl alert ed Glucomt 16:57 r-[facility] Glucose dC Glucomtr-[facility] (08-25-2012 12:04) Glucose 2 454 70-110 High complet BldC 013 mg/dl alert ed Glucomt 12:04 r-[facility] Glucose dC Glucomtr-[facility] (08-25-2012 06:10) Glucose 2 386 70-110 High complet BldC 013 mg/dl alert ed Glucomt 06:10 r-[facility] COMPREHENSIVE METABOLIC PANEL (08-24-2012 23:30) Glucose [...] Ramachandran MD (IN) 3 23:20 3 16:40 [facility] ANDRADE - 0 0 [facility]
--- OUTSIDE RECORDS SUMMARY | 2017-04-07 06:22 | External Medical Summary Rpt | CCD ---
Author Author , MURPHY VILLEDA Address Unknown Phone [email or web address] Care Team Providers Care Lawn Sprinkler Installer Name Role Phone [facility] Unavailable Unavailable INC, [facility] Unavailable Unavailable HOSPITAL P, [facility] P Purpose Continuity of Care Document - 04-12-2010 through 2016 Problems Code Diagnosis DOS Provider Status 11294 DIAB W/O 04-12-2010 [facility] COMP TYPE [facility] II/UNS NOT HOSPITAL P STATED UNCNTRL 4019 UNSPECIFIED 04-12-2010 [facility] ESSENTIAL [facility] HYPERTENSIO [facility] P N 37486 ATRIAL 04-12-2010 [facility] 22610 OTHER CHEST 04-12-2010 [facility] P V5861 LONG-TERM 04-12-2010 [facility] (CURRENT) [facility] USE OF INC ANTICOAGULA NTS V5867 LONG-TERM 04-12-2010 [facility] USE OF [facility] INSULIN [facility] P Encounters Encounter Start End Date Code Location Performer Type Date HOSPITAL [facility] - 0 0 [facility]
--- OUTSIDE RECORDS SUMMARY | 2017-04-07 06:22 | External Medical Summary Rpt | CCD ---
Author Author , MURPHY Organization MURPHY Address Unknown Phone [email or web address] Immunization Name Date Rout CVX Reac Dose Comm Prov Is Faci e tion ent ider Refu lity Give sed n PPV2 07-2 33 999 Hist D203 No D203 3 8-20 oric 45 45 16 al Info rmat ion - Sour ce Unsp ecif ied
--- OUTSIDE RECORDS SUMMARY | 2017-04-07 06:22 | External Medical Summary Rpt ---
Author Author CHRISTIANA Maggie, [employer] Organization [employer] Address Unknown Phone Unavailable Results INR in Blood by Coagulation assay Observa Value Referen Units Interpr Notes Date tion ce etation Range IS PATIENT ON ANTICOAGULANTS? Y LIST ANTICOAGULANTS: WARFARIN INR in 0.9 - 1.1 No High Apr 07 Blood by informati NOTIFICAT 2017 4:05 Coagulati on in ION AM on assay source RESULT data INDIC ATION INR RANGETHER APY FOR DVT, PE, ATRIAL FIB; 2.0 - 3.0PROPHY LAXIS FOR VTETHERAP Y FOR MECHANICA L HEART 2.5 - 3.5VALVE; PREVENTIO N OF SYSTEMICE MBOLISM SECONDARY TO AMI Prothromb 9.4 - SECONDS High Apr 07 in time 11.8 NOTIFICAT 2017 4:05 (PT) in ION AM Platelet RESULT poor plasma by Coagulati on assay CBC W Auto Differential panel in Blood Observa Value Referen Units Interpr Notes Date tion ce etation Range Basophils 0 - 0.2 K/MM3 Normal No Apr 07 inform2016 4:05 [#/volume on in AM ] in source Blood by data Automated count Basophils 0.1 - 2.0 % Normal No Apr 07 informati 2016 4:05 leukocyte on in AM s in source Blood by data Automated count Eosinophi 0.0 - 0.4 K/mm3 Normal No Apr 07 ls informati 2016 4:05 [#/volume on in AM ] in source Blood by data Automated count Eosinophi 0.1 - % Normal No Apr 07 ls/100 12.0 informati 2016 4:05 leukocyte on in AM s in source Blood by data Automated count Granulocy 1.8 - 7.8 K/mm3 Normal No Apr 07 michelle informati 2016 4:05 [#/volume on in AM ] in source Blood by data Automated count Granulocy 37.0 - % Normal No Apr 07 michelle/100 80.0 informati 2016 4:05 leukocyte on in AM s in source Blood by data Automated count Hematocri 37.0 - % Low No Apr 6 t [Volume 47.0 informati 2017 4:05 on in AM Fraction] source of Blood data Hemoglobi 12.2 - g/dL Low No Apr 6 n 16.2 informati 2017 4:05 [Mass/vol on in AM ume] in source Blood data Lymphocyt 0.7 - 4.5 K/mm3 Normal No Apr 6 es informati 2017 4:05 [#/volume on in AM ] in source Unspecifi data ed specimen by Automated count Lymphocyt 10 - 50.0 % Normal No Apr 6 es informati 2017 4:05 [#/volume on in AM ] in source Unspecifi data ed specimen by Automated count Erythrocy 27 - 31.2 pg Low No Apr 6 te mean informati 2017 4:05 corpuscul on in AM ar source hemoglobi data n [Entitic mass] Erythrocy 31.8 - g/dl Low No Apr 6 te mean 35.4 informati 2017 4:05 corpuscul on in AM ar source hemoglobi data n concentra tion [Mass/vol ume] by Automated count Erythrocy 82.2 - fl Low No Apr 6 te mean 97.8 informati 2017 4:05 corpuscul on in AM ar volume source [Entitic data volume] by Automated count Monocytes 0.1 - 1.0 K/mm3 Normal No Apr 6 informati 2017 4:05 [#/volume on in AM ] in source Blood by data Automated count Monocytes 1.7 - 9.3 % High No Apr 6 /100 informati 2017 4:05 leukocyte on in AM s in source Blood by data Automated count Platelet 7.4 - fl Normal No Apr 6 mean 10.4 informati 2017 4:05 volume on in AM [Entitic source volume] data in Blood by Automated count Platelets 142 - 424 K/mm3 Normal No Apr 6 informati 2017 4:05 [#/volume on in AM ] in source Blood data Erythrocy 4.2 - 5.4 M/mm3 Normal No Apr 6 michelle informati 2017 4:05 [#/volume on in AM ] in source Amniotic data fluid Erythrocy 11.5 - % Normal No Apr 6 te 17.5 informati 2017 4:05 distribut on in AM ion width source [Entitic data volume] by Automated count Leukocyte 4.8 - K/MM3 Low No Apr 6 s 10.8 informati 2017 4:05 [#/volume on in AM ] in source Blood data Basic metabolic panel in Blood Observa Value Referen Units Interpr Notes Date tion ce etation Range Urea 7 - 18 mg/dL High No Sep 16 nitrogen informati 2016 7:59 [Mass/vol on in AM ume] in source Serum or data Plasma Calcium 8.5 - mg/dL Normal No Jan 16 [Mass/vol 10.1 informati 2016 7:59 ume] in on in AM Serum or source Plasma data Chloride 98 - 107 mmoL/L Normal No Sep 16 [Moles/vo informati 2016 7:59 lume] in on in AM Serum or source Plasma data Carbon 21.0 - mmoL/L Normal No Sep 16 dioxide, 32.0 informati 2017 7:59 total on in AM [Moles/vo source lume] in data Serum or Plasma Creatinin 0.55 - mg/dL High No Jan 16 e 1.02 informati 2016 7:59 [Mass/vol on in AM ume] in [...] 5.1 mmoL/L Normal No Sep 16 informati 2016 7:59 [Moles/vo on in AM lume] in source Serum or data Plasma Sodium 136 - 145 mmoL/L Normal No Sep 16 [Moles/vo informati 2017 7:59 lume] in on in AM Serum or source Plasma data Basic metabolic panel in Blood Observa Value Referen Units Interpr Notes Date ti ce etation Range Urea 7 - 18 mg/dL High No Jan 30 nitrogen informati 2016 1:00 [Mass/vol on in PM [...] WASHINGTON Murphy CNA WITH ARTEM THAKKAR AND YOLETTELucila 01/24/17 0903 [address] Mojica Sodium 136 - [...] High No Jan 12 e 1.02 informati 2017 5:58 [Mass/vol on in AM ume] in source Serum or data Plasma Creatinin 50 - 200 ML/MIN No No Jan 12 e renal informati informati 2017 5:58 clearance on in on in AM [...] 136 - 145 mmoL/L Normal No Jan 12 [Moles/vo informati 2016 5:58 lume] in on in AM Serum or source Plasma data CBC W Auto Differential panel in Blood Observa Value Referen Units Interpr Notes Date tion ce etation Range Basophils 0 - 0.2 K/MM3 Normal No Jan 12 inform2016 5:58 [#/volume on in AM ] in source Blood by data Automated count Basophils 0.1 - 2.0 % Normal No Jan 12 / informati 2016 5:58 leukocyte on in AM s in source Blood by data Automated count Eosinophi 0.0 - 0.4 K/mm3 Normal Jan 12 ls informati 2016 5:58 [#/volume [...] Automated count Hematocri 37.0 - % Low Jan 12 t [Volume 47.0 informati 2016 5:58 on in AM Fraction] source of Blood data Hemoglobi 12.2 - g/dL Low Jan 12 n 16.2 informati 2016 5:58 [Mass/vol on in AM ume] in source Blood data Lymphocyt 0.7 - 4.5 K/mm3 Normal No Jan 12 es informati 2016 5:58 [#/volume on in AM ] in source Unspecifi data ed specimen by Automated count Lymphocyt 10 - 50.0 % Normal No Jan 12 es inform2016 5:58 [#/volume on in AM ] in source Unspecifi data ed specimen by Automated count Erythrocy 27 - 31.2 pg Low No Jan 12 te mean informati 2016 5:58 corpuscul on in AM ar source hemoglobi data n [Entitic mass] Erythrocy 31.8 - g/dl Low No Jan 12 te mean 35.4 informati 2017 5:58 corpuscul on in AM ar source hemoglobi data n concentra tion [Mass/vol ume] by Automated count Erythrocy 82.2 - fl Low No Jan 12 te mean 97.8 informati 2016 5:58 corpuscul on in AM ar volume source [Entitic data volume] by Automated count Monocytes 0.1 - 1.0 K/mm3 Normal No Jan 12 informati 2016 5:58 [#/volume on in AM ] in source Blood by data Automated count Monocytes 1.7 - 9.3 % High No Jan 12 /100 informati 2017 5:58 leukocyte on in AM s in source Blood by data Automated count Platelet 7.4 - fl Low Jan 12 mean 10.4 informati 2017 5:58 volume on in AM [Entitic source volume] data in Blood by Automated count Platelets 142 - 424 K/mm3 Normal No Jan 12 informati 2016 5:58 [#/volume on in AM ] in source Blood data Erythrocy 4.2 - 5.4 M/mm3 Normal No Jan 12 michelle informati 2016 5:58 [#/volume on in AM ] in source Amniotic data fluid Erythrocy 11.5 - % Normal No Jan 12 te 17.5 informati 2016 5:58 distribut on in AM ion width source [Entitic data volume] by Automated count Leukocyte 4.8 - K/MM3 Low No Jan 12 s 10.8 informati 2016 5:58 [#/volume on in AM [...] Low No Jan 10 (T4) 13.3 informati 2016 9:30 [Mass/vol on in PM ume] in source Serum or data Plasma Thyrotropin [Units/volume] in Serum or Plasma Observa Value Referen Units Interpr Notes Date tion ce etation Range Thyrotrop 0.358 - uIU/ml No No Jan 10 in 3.740 informati informati 2016 9:30 [Units/vo on in on in PM [...] 2.0 % Normal No Jan 10 informati 2016 9:30 leukocyte on in PM [...] - 9.3 % High No Jan 10 informati 2016 9:30 leukocyte on in PM s in source Blood by data Automated count Platelet 7.4 - fl Low No Jan 10 mean 10.4 informati 2016 9:30 volume on in PM [Entitic source volume] data in Blood by Automated count Platelets 142 - 424 K/mm3 Normal No Jan 10 informati 2016 9:30 [#/volume on in PM ] in source Blood data Erythrocy 4.2 - 5.4 M/mm3 Low No Jan 10 michelle informati 2017 9:30 [#/volume on in PM ] in source Amniotic data fluid Erythrocy 11.5 - % Normal No Jan 10 te 17.5 informati 2017 9:30 distribut on in PM ion width [...]
--- OUTSIDE RECORDS SUMMARY | 2017-04-07 06:22 | External Medical Summary Rpt ---
[...] CALLED TO: WASHINGTON Murphy CNA WITH ARTEM HTAKKAR AND YOLETTELucila 01/24/17 0903 [address] Mojica Sodium [...]
--- OUTSIDE RECORDS SUMMARY | 2017-04-07 06:22 | External Medical Summary Rpt | CCD ---
Author Author , MURPHY VILLEDA Address Unknown Phone [email or web address] Team Providers Care Keg Washer Name Role Phone [facility] Unavailable Unavailable [facility], [facility] Unavailable Unavailable HOSPITAL P, [facility] P Purpose Continuity of Care Document - 04-12-2010 through 2016 Problems Code Diagnosis DOS Provider Status 67837 DIAB W/O 04-12-2010 [facility] COMP TYPE [facility] II/UNS NOT HOSPITAL P STATED UNCNTRL 4019 UNSPECIFIED 04-12-2010 [facility] ESSENTIAL [facility] HYPERTENSIO [facility] P N 31906 ATRIAL 04-12-2010 [facility] N INC [id number] OTHER CHEST 04-12-2010 [facility] P [id number] LONG-TERM 04-12-2010 [facility] (CURRENT) [facility] USE OF INC ANTICOAGULA NTS [id number] LONG-TERM 04-12-2010 [facility] USE OF [facility] INSULIN [facility] P Encounters Encounter Start End Date Code Location Performer Type Date HOSPITAL [facility] - 0 0 [facility]
--- OUTSIDE RECORDS SUMMARY | 2017-04-07 06:22 | External Medical Summary Rpt | CCD ---
Author Author , MURPHY Organization MURPHY Address Unknown Phone [email or web address] Immunization Name Date Rout CVX Reac Dose Comm Prov Is Faci e tion ent ider Refu lity Give sed n PPV2 07-2 33 999 Hist D203 No D203 3 8-20 oric 45 45 16 al Info rmat ion - Sour ce Unsp ecif ied
[2017-04-07] MEDS ORDERED: LOSARTAN POTASS25 MG PO (06:56)
[2017-04-07] MEDS ORDERED: CYCLOBENZAPRINE10 MG PO (06:57)
--- NOTE | 2017-04-07 07:25 | HISTORY AND PHYSICAL REPORT ---
Demographics: Admit date: 04/07/17 Chief complaint: Palpitations PRIMARY DIAGNOSIS: atrial arrhythmia, labile hypertension Allergies: Coded Allergies: No Known Allergies (04/14/16) History of present illness: History of present illness: 66-year-old female with long history of atrial fibrillation and labile hypertension presented to the emergency department early this morning with complaints of palpitations and malaise. Patient's blood pressure had been severely elevated at home overnight and did not respond to her usual medications and she presented to the ER. In the ER she was found to be in what appeared to be atrial flutter and was placed on a Cardizem drip which brought her rate from the 130s down to the low 100s. She did not convert. Her blood pressure was also significantly elevated on presentation and has come down with Cardizem drip. Patient denies chest pain. She's been taking her medications as prescribed. She tells me over the last 2 weeks that her blood pressures have been quite fluctuant and she is considered coming to the office but will convince herself that she is getting better and usually stays home. She was also found to have a mild coagulopathy in the emergency department. Patient is on warfarin for her atrial fibrillation Past medical history: Family HX Family Hx Insignificant No Diabetes Yes CAD Yes Hypertension Yes Hyperlipidemia Yes Cancer No TB No Immunization HX DT/Tetanus > 10 Years Ago Flu Refused Pneumonia Received In Past General CAD? No Angina: No MD: No Hypertension? Yes Hyperlipidemia? Yes CHF? No DVT? No PE? No COPD? No Asthma? No Anemia? No GERD? Yes Gastric ulcers? No GI Bleed? No Hernia? Yes Thyroid Problems? No Hypothyroidism? No CVA? No Seizures? No Diabetes? Yes Insulin Dependent: Yes Insulin Pump: No Home FSBS? Yes Renal Insuffiency? No UTI? No Stones? No BPH? No GB Disease: Yes Nephritic Syndrome? No Asplenia? No Hepatitis? No Sickle Cell Disease? No Arthritis? No Migraines? No Cataracts? No Glaucoma? No MRSA? No HIV? No TB? No Anxiety? No Depression? No Cancer? No More? Yes Additional hx: see problem list Past Surgical HX Previous Surgery?Y GALLBLADDER TUBAL CYST REMOVED (BACK) CARDIAC ABLATION Current home meds: Active Scripts BISOPROLOL FUMARATE (Bisoprolol 5MG) 5 MG PO DAILY #30 TAB Ref 11 Prov: 12/20/15 Reported Medications Warfarin Sodium (Coumadin) 5 MG PO DAILY WARFARIN SOD (Warfarin 1MG) 1 MG PO DAILY Hydralazine Hcl (Hydralazine Hydrochloride) 50 MG PO TID CLONIDINE HCL (Clonidine 0.3MG Tablet) 0.3 MG PO TID Insulin Lispro, Recombinant (Humalog 100 UNITS/ML 10ML) 8 UNITS SC AC Insulin Glargine (Lantus) 15 UNITS SC QHS Potassium Chloride (K-Dur) 20 MEQ PO BID Atorvastatin Calcium 20 MG PO QHS Losartan Potassium (Losartan 25MG) 25 MG PO DAILY #1 Cyclobenzaprine Hcl (Cyclobenzaprine 10MG) 10 MG PO BID Carvedilol (Carvedilol 25MG) 25 MG PO BID Furosemide (Furosemide 40MG) 40 MG PO DAILY Social Hx: Smoking HX Tobacco No Type N/A Alcohol Alcohol: No Hx of Drug Use Drug Use? No Review of systems: Constitutional No: chills, diaphoresis, fever, malaise. Respiratory No: cough, orthopnea, shortness of breath. Cardiovascular palpitations Gastrointestinal/Abdominal no symptoms reported Genitourinary no symptoms reported. Musculoskeletal no symptoms reported. Neurological Yes: no symptoms reported. Exam: Lab data for last 24 hours: Laboratory Tests 04/07/17 0405: PT 67.2 H, INR 6.11 H, WBC 4.7 L, RBC 4.36, Hgb 10.6 L, Hct 34.3 L, MCV 78.5 L, RDW 16.7, Plt Count 275, MPV 7.5, Gran % 60.5, Gran # 2.8, Lymphocytes % 18.3, Monocytes % 13.2 H, Eosinophils % 7.4, Basophils % 0.6, Lymphocytes # 0.9, Monocytes # 0.6, Eosinophils # 0.4, Basophils # 0.0, PUBS MCHC 30.8 L, MCH 24.2 L 04/07/17 0335: Sodium 136, Potassium 4.0, Chloride 101, Carbon Dioxide 27, BUN 20 H, Creatinine 1.4 H, Estimated Creat Clear 56, Estimated GFR (MDRD) 38 L, Glucose 113 H, Calcium 9.4, Total Bilirubin 0.7, AST 41 H, ALT 23, Alkaline Phosphatase 291 H, Troponin I < 0.02, Total Protein 7.8, Albumin 3.0 L, Globulin 4.8 H, Albumin/Globulin Ratio 0.6 L Admission vital signs: 1ST Vital Signs Result Date Time Pulse Ox 97 04/07 328 B/P 170/134 04/07 328 Temp 98.3 04/07 328 Pulse 124 04/07 328 Resp 21 04/07 328 Vital Signs Date Time Temp Pulse Resp B/P Pulse O2 O2 Flow FiO2 Ox Delivery Rate 04/07 0651 116 20 156/117 96 04/07 0534 112 20 159/108 96 04/07 0450 89 20 115/63 96 04/07 0402 87 18 126/49 97 04/07 328 98.3 124 21 170/134 97 Exam General appearance: alert, active, awake, no acute distress Eyes: anicteric ENT: mucous membranes moist Cardiovascular: irregularly irregular Respiratory: clear to auscultation, good air movement, normal breath sounds ABD: soft, no tenderness Extremities: full range of motion Skin: intact Plan: Problem List 1. Uncontrolled hypertension 2. Rapid atrial fibrillation 3. Anemia Plan: 1. Patient be admitted on a Cardizem drip and cardiology consultation will be had number number 2. Home medications will be reordered
--- NOTE | 2017-04-07 09:47 | PHARMACY CLINIC NOTE ---
Patient Demographics Patient Demographics Admission date: 04/07/17 Date: 04/07/17 Time: 0946 Allergies Coded Allergies: No Known Allergies (04/14/16) HEIGHT- FT: 5 IN: 7.00 K.565 VTE General Information Labs: Laboratory Tests 04/07 0405 Coagulation PT (9.4 - 11.8 SECONDS) 67.2 H INR (0.9 - 1.1) 6.11 H Hematology Hgb (12.2 - 16.2 g/dL) 10.6 L Hct (37.0 - 47.0 %) 34.3 L Plt Count (142 - 424 K/mm3) 275 Disclaimer The following section includes nursing documentation that has been pulled in for pharmacy review. Patient's VTE score: 2 Patient's VTE Risk: VERY LOW RISK Clinical trial participant? No VTE prophylaxis NQF [id number] VTE prophylaxis ordered? Yes Type of prophylaxis/treatment: LAKSHMI at 0946
[2017-04-07 12:32] LABS: FREE THYROXIN INDEX 8.9 ug/dl (5.93-13.13)
--- NOTE | 2017-04-07 12:32 | CONSULT NOTE ---
Standard Demographics Patient Demo Date of Consultation: 04/07/17 Referring Provider: Raffy Ramachandran MD Reason for Consultation: Narrow complex tachycardia, PRIMARY DIAGNOSIS: atrial arrhythmia, labile hypertension Problem list Problem list: 1. Narrow complex tachycardia, possible SVT, at 130 bpm. 2. Elevated blood pressure 3. Elevated INR at 6.11; chronic anticoagualted with Coumadin 4. Hx PAF, Atrial flutter 5. HTN 6. DM 7. Diastolic dysfunction 8. HLD 9. SAMUEL, untreated 10. Obesity History of present illness: History of present illness: 66-year-old female with long history of paroxysmal atrial fibrillation/atrial flutter and labile hypertension presented to the emergency department early this morning with complaints of palpitations and malaise. Patient's blood pressure had been severely elevated at home overnight and did not respond to her usual medications. In the ER an EKG demonstrated a narrow complex tachycardia at 130 bpm (possible SVT). Cardizem drip was started which brought her rate from the 130s down to the low 100s. Her blood pressure which was measured as 170/134 on arrival has come down with Cardizem drip. Patient denies chest pain. Does get SOA with activity. She reports that over the last 2 weeks that her blood pressures has been quite fluctuant. Upon admission her INR was noted to be elevated at 6.11. She is on warfarin for her atrial fibrillation/flutter. Ms Best tells me that she ran out of her Bisoprolol 5 mg daily about one month ago (she takes both Bisoprolol 5 mg qd and Carvedilol 25 mg bid for HR control and HTN). She also tells me that Dr Kent stopped her Amlodipine about 2 months ago. Currently her rhythm is atrial bigeminy with HR in the 80s. Her most recent BP was 144/77. She says she feels OK with no palpitations, SOA, or CP. Past Medical History: General: Hypertension Yes CVA No Seizures No TB No COPD No Asthma No Diabetes Yes Insulin Dependent Yes Insulin Pump No Angina No MD No Hyperlipidemia Yes Urinary No Cancer No Rheumatic H.D. No Ulcers No MRSA No GB Disease Yes Other atrial fibrillation Additional hx see problem list. Past Surgical HX: Previous Surgery?Y GALLBLADDER TUBAL CYST REMOVED (BACK) CARDIAC ABLATION Allergies Coded Allergies: No Known Allergies (04/14/16) Home medications: Active Scripts BISOPROLOL FUMARATE (Bisoprolol 5MG) 5 MG PO DAILY #30 TAB Ref 11 Prov: 12/20/15 Reported Medications Warfarin Sodium (Coumadin) 5 MG PO DAILY WARFARIN SOD (Warfarin 1MG) 1 MG PO DAILY Hydralazine Hcl (Hydralazine Hydrochloride) 50 MG PO TID Cyclobenzaprine Hcl (Cyclobenzaprine 10MG) 10 MG PO QHSP PRN NEEDED FOR LEG CRAMPS CLONIDINE HCL (Clonidine 0.3MG Tablet) 0.3 MG PO TID Insulin Glargine (Lantus) 15 UNITS SC QHS Potassium Chloride (K-Dur) 20 MEQ PO BID Atorvastatin Calcium 20 MG PO QHS Losartan Potassium (Losartan 25MG) 25 MG PO DAILY #1 Furosemide (Furosemide 40MG) 40 MG PO DAILY Current Medications: Current Medications Atorvastatin Calcium 20 MG QHS PO Insulin Glargine 15 UNITS QHS SC Sodium Chloride 100 ML .STK-MED ONE IV (DC) Diltiazem HCl 0 .STK-MED ONE IV (DC) Amlodipine Besylate 10 MG DAILY PO Bisoprolol Fumarate 10 MG DAILY PO Carvedilol 25 MG BID PO Clonidine HCl 0.3 MG TID PO Furosemide 40 MG DAILY PO Hydralazine HCl 50 MG TID PO Potassium Chloride 20 MEQ BID PO Diagnostic Test (Pha) 1 EACH W/MEALS&HS FS Insulin Human [rDNA origin] SEE ADMIN CRITERIA FOR MEDIUM INTENSITY W/MEALS&HS SC Diltiazem HCl 100 MG .Q10H IV Sodium Chloride 100 ML Influenza Virus Vaccine Quadrival 0.5 ML PRN PRN IM Nicotine 21 MG DAILYP PRN TD Sodium Chloride 10 ML PRN PRN IV Sodium Chloride 100 ML .STK-MED ONE IV (DC) Diltiazem HCl 0 .STK-MED ONE IV (DC) Diltiazem HCl 0 .STK-MED ONE IV (DC) Diltiazem HCl 100 MG ONCE ONE IV Sodium Chloride 100 ML Diltiazem HCl 20 MG ONCE ONE IV (DC) Sodium Chloride 10 ML PRN PRN IV Immunization HX DT/Tetanus > 10 Years Flu Refused Pneumonia RECEIVED IN PAST TB Test in last year No Family history Family HX Diabetes Yes CAD Yes Hypertension Yes Hyperlipidemia Yes Cancer No TB No Social Hx: Smoking HX Tobacco No Type N/A Are you/the child exposed to second-hand smoke: No Alcohol Alcohol: No Hx of Drug Use Drug Use? No Patien't marital status is Patient's support system is good Review of systems: Constitutional No: no symptoms reported. Respiratory SOB with excertion. Cardiovascular No chest pain, palpitations Gastrointestinal/Abdominal No no symptoms reported Genitourinary No: no symptoms reported. Musculoskeletal No: no symptoms reported. Neurological No: no symptoms reported. Psychiatric No: no symptoms reported. Exam: Admission Vital Signs: 1ST Vital Signs Result Date Time Pulse Ox 97 04/07 328 B/P 170/134 04/07 328 Temp 98.3 04/07 328 Pulse 124 04/07 328 Resp 21 04/07 328 O2 Delivery ROOM AIR 04/07 822 Last Vital Signs: Vital Signs Result Date Time Pulse 114 04/07 930 Pulse Ox 97 04/07 930 O2 Delivery ROOM AIR 04/07 930 B/P 142/102 04/07 848 Temp 98.7 04/07 848 Resp 18 04/07 848 Exam General appearance: alert, awake, no acute distress Neck: no carotid bruit Cardiovascular: no murmur, NSR, frequent PACs. ( ) Respiratory: aerating well, clear to auscultation ABD: normal bowel sounds, soft, no tenderness Extremities: no peripheral edema, pedal pulses Neuro: intact, no deficit Laboratory data: Laboratory Tests 04/07/17 0820: POC Glucose 138 H 04/07/17 0405: PT 67.2 H, INR 6.11 H, WBC 4.7 L, RBC 4.36, Hgb 10.6 L, Hct 34.3 L, MCV 78.5 L, RDW 16.7, Plt Count 275, MPV 7.5, Gran % 60.5, Gran # 2.8, Lymphocytes % 18.3, Monocytes % 13.2 H, Eosinophils % 7.4, Basophils % 0.6, Lymphocytes # 0.9, Monocytes # 0.6, Eosinophils # 0.4, Basophils # 0.0, PUBS MCHC 30.8 L, MCH 24.2 L 04/07/17 0335: Sodium 136, Potassium 4.0, Chloride 101, Carbon Dioxide 27, BUN 20 H, Creatinine 1.4 H, Estimated Creat Clear 56, Estimated GFR (MDRD) 38 L, Glucose 113 H, Calcium 9.4, Total Bilirubin 0.7, AST 41 H, ALT 23, Alkaline Phosphatase 291 H, Troponin I < 0.02, Total Protein 7.8, Albumin 3.0 L, Globulin 4.8 H, Albumin/Globulin Ratio 0.6 L Plan Assessment: 1. Narrow complex tachycardia, possible SVT. 2. Elevated BP 3. Elevated INR 4. Hx of PAF/AFL Plan: 1. Thyroid panel. 2. Echo 4. D/C Diltiazem drip and monitor HR closely. 5. Resume Bisoprolol for rate control. 6. Resume Amlodipine for HTN. 7. F/U appt scheduled for 2 weeks.
--- NOTE | 2017-04-07 19:11 | RADIOLOGY REPORT PS360 ---
PROCEDURE: 2-D M-mode and color Doppler study INDICATIONS FOR THE TEST: Chest pain COPD Heart Murmur Tobacco Smoking Palpitations Fatigue Syncope Edema HypertensionXDiabetes MellitusX Rheumatic Fever SOB DOEXObesityXHyperlipidemiaX Family History HD Additional History AF PATIENT INFORMATION HEIGHT: 67 WEIGHT:195 GENDER: Female B/P:142/102 2-D/M-MODE INTERPRETATION: 2-D MEASUREMENTS OBSERVED VALUES IN CMS Right Ventricular Dimension (RVDd) 1.8 Interventricular Septum (Thickness)(IVsd) 1.3 Left Ventricular Internal Dimensions(LVIDd) 5.2 Left Ventricular Posterior Wall (Thickness)(LVPWd) 1.3 Aortic Root 3.3 Aortic Cusp Separation 1.9 Left Atrial Dimensions (LAD) 5.8 2D 1. Left atrium is markedly enlarged, left ventricle is normal size, there is mild concentric left ventricular hypertrophy, visually estimated ejection fraction of 55% with no obvious regional wall motion abnormality. 2. The right atrium and right ventricle are relatively normal size and function. 3. The aortic valve is minimally thickened and fibrosed. There is no aortic stenosis. 4. The mitral and tricuspid valve leaflets are minimally thickened. 5. The pulmonic valve is poorly visualized. 6. There is trivial pericardial effusion noted. DOPPLER INTERROGATION: Doppler interrogation of the aortic, mitral and tricuspid valvular presence of mild mitral and tricuspid regurgitation, tricuspid and jet velocity insufficient for calculation of the right ventricular systolic pressure, mitral inflow pattern is suggestive of raised left ventricular end-diastolic pressure. CONCLUSION: 1. Markedly enlarged left atrium, normal left ventricular size, mild concentric left ventricular hypertrophy present, visually estimated ejection fraction of 55% with no obvious regional wall motion abnormality. Doppler evidence of previous left ventricular end-diastolic pressure. 2. Mild mitral and tricuspid regurgitation. 3. Trivial pericardial effusion noted.
[2017-04-08 04:17] VITALS: BP 140/93
--- NOTE | 2017-04-08 07:27 | Discharge Summary ---
Demographics Admit date: 04/07/17 Discharge date: 04/08/17 Discharge diagnoses Problem List 1. Rapid atrial fibrillation 2. Uncontrolled hypertension 3. Anemia History of present illness History of present illness 66-year-old female with long history of paroxysmal atrial fibrillation/atrial flutter and labile hypertension presented to the emergency department early this morning with complaints of palpitations and malaise. Patient's blood pressure had been severely elevated at home overnight and did not respond to her usual medications. In the ER an EKG demonstrated a narrow complex tachycardia at 130 bpm (possible SVT). Cardizem drip was started which brought her rate from the 130s down to the low 100s. Her blood pressure which was measured as 170/134 on arrival has come down with Cardizem drip. Patient denies chest pain. Does get SOA with activity. She reports that over the last 2 weeks that her blood pressures has been quite fluctuant. Upon admission her INR was noted to be elevated at 6.11. She is on warfarin for her atrial fibrillation/flutter. Ms Best tells me that she ran out of her Bisoprolol 5 mg daily about one month ago (she takes both Bisoprolol 5 mg qd and Carvedilol 25 mg bid for HR control and HTN). She also tells me that Dr Kent stopped her Amlodipine about 2 months ago. Currently her rhythm is atrial bigeminy with HR in the 80s. Her most recent BP was 144/77. She says she feels OK with no palpitations, SOA, or CP. Patient was admitted and it was discovered that she had been off her bisoprolol for the last month. Patient was given bisoprolol 10 mg on the morning of admission along with her home medicines including carvedilol 25 mg by mouth twice a day. Cardiology consult was obtained and we appreciate their input and help with managing this patient. Patient was continued on her beta blockers. Echocardiogram was obtained. Patient's pulse rate returned to the 70s and 80s and remained that way from the afternoon of admission to the following morning. Once heart rate had remained under control patient was discharged home. It was emphasized that she take her medicines as prescribed and if she needs refills to contact the office. Patient will follow-up in a week for PT and INR Medications Medications: Discharge meds are as noted. Follow up Follow up in office in: 7 DAYS with: Jay Kent MDC.
[2017-04-08 08:04] VITALS: BP 143/80
[2017-04-08 08:39] VITALS: BP 143/80
== END 2017-04-08 08:32 | disposition home or self-care (01) | DRG 305 ==
LOC: ER 03:18 → 2ND 06:16 → ER 06:16 → 2ND 06:26
PROVIDERS: Emergency Medicine; Internal Medicine Cardiovascular Disease
DX: I10 Essential (primary) hypertension (principal); I48.0 Paroxysmal atrial fibrillation; E11.9 Type 2 diabetes mellitus without complications; Z79.01 Long term (current) use of anticoagulants; Z79.4 Long term (current) use of insulin; T44.7X6A Underdosing of beta-adrenoreceptor antagonists, initial encounter; Z91.128 Patient's intentional underdosing of medication regimen for other reason

== ENCOUNTER → 2017-04-16 | Outpatient (CLI) | payer MEDICARE ==
[~2017-04-16] MED LIST changes: +CYCLOBENZAPRINE10 MG PO; +LOSARTAN POTASS25 MG PO
[2017-04-16 11:14] LABS: HEMOGLOBIN 10.1 g/dL (12.2-16.2); LYMPH # 0.8 K/mm3 (0.7-4.5); LYMPH % 16.5 % (10-50.0)
[2017-04-16 12:49] LABS: URINE BILIRUBIN - DIPSTICK NEGATIVE (NEG); URINE BLOOD NEGATIVE (NEG)
[2017-04-16 13:46] LABS: BUN 16 mg/dL (7-18)
[2017-04-16 13:57] LABS: GFR (ESTIMATED) 41 ML/MIN (59-)
[2017-04-16 14:02] LABS: URINE SQUAMOUS CELLS OCC #/hpf (0-5)
== END ==
LOC: LAB 09:36
PROVIDERS: Internal Medicine Nephrology
DX: N28.9 Disorder of kidney and ureter, unspecified (principal); E55.9 Vitamin D deficiency, unspecified